=== PATIENT | male | born 1940 | race Caucasian/White ===

== ENCOUNTER 2021-06-01 02:14 | Inpatient (IN) | payer OTHER ==
[2021-06-01 03:25] LABS: MCH 28.8 pg (25.7-33.7); MCHC 32.2 g/dl (32.0-35.9); MEAN CELL VOLUME 89.4 fl (80-96); MEAN PLT VOLUME 8.6 fl (7.5-11.1); PLATELET COUNT 303 10^3/uL (134-434); RBC 3.13 M/mm3 (4.00-5.60); RDW 22.6 % (11.9-15.9)
[2021-06-01 03:43] LABS: CHLORIDE 93 mmol/L (98-107); SODIUM 137 mmol/L (136-145)
[2021-06-01 03:45] LABS: CALCIUM 8.5 mg/dL (8.5-10.1)
[2021-06-01 03:46] LABS: ALBUMIN 2.1 g/dl (3.4-5.0); ANION GAP 14 MMOL/L (8-16); CO2 30 mmol/L (21-32); GLUCOSE,RANDOM 186 mg/dL (74-106)
[2021-06-01 03:49] LABS: CREATININE 2.6 mg/dL (0.55-1.3); SGOT/AST 48 U/L (15-37); SGPT/ALT 55 U/L (13-61)
[2021-06-01 03:50] LABS: BILIRUBIN,TOTAL 1.3 mg/dL (0.2-1); TOT PROT 7.5 g/dl (6.4-8.2)
[2021-06-01 03:52] LABS: ALK PHOS 990 U/L (45-117)
[2021-06-01 04:09] LABS: ANISOCYTOSIS 2+; MACROCYTOSIS 0; PLATELET ESTIMATE NORMAL
[2021-06-01 04:21] LABS: BLOOD UREA NITROGEN 174.7 mg/dL (7-18)
[2021-06-01] MEDS ORDERED: VANCOMYCIN 1 GM in D5W (PRE-DOCKED) 1,000 MG/250 ML IVPB ONE (05:17)
[2021-06-01] MEDS ORDERED: PIPERACILLIN/TAZOB 3.375 GM 3.375 GM in DEXTROSE 5%-WATER - 50 ML IVPB ONE (05:18)
[2021-06-01] MEDS ORDERED: PIPERACILLIN/TAZOB 3.375 GM 3.375 GM/50 ML BAG IVPB ONE (05:38)
[2021-06-01] MEDS ORDERED: VANCOMYCIN 1 GRAM (PRE-DOCKED) 1,000 MG/250 ML BAG IVPB ONE (06:04)
[2021-06-01 07:18] LABS: LACTIC ACID 2.3 mmol/L (0.4-2.0)
[2021-06-01] MEDS ORDERED: SODIUM CHLORIDE 1,000 ML IV SCH (08:30)
[2021-06-01 09:10] LABS: EPI CELLS 5 /uL (0-25.1); HYALINE CASTS 3 /uL (0-3.1); URINE APPEARANCE TURBID; URINE BACTERIA 108 /uL (0-1359); URINE BILIRUBIN NEGATIVE (NEGATIVE); URINE COLOR DK YELLOW; URINE GLUCOSE (UA) NEGATIVE (NEGATIVE); URINE KETONE NEGATIVE (NEGATIVE); URINE LEUK ESTERASE 3+ (NEGATIVE); URINE NITRITE NEGATIVE (NEGATIVE); URINE PROTEIN TRACE (NEGATIVE); URINE UROBILINOGEN 0.2 mg/dL (0.2-1.0); URINE WBC 4363 /uL (0-25.8)
[2021-06-01 09:17] LABS: RETICULOCYTES 3.89 % (0.5-1.5)
[2021-06-01 09:20] LABS: IRON SERUM 39 ug/dL (50-175)
[2021-06-01 09:23] LABS: TOTAL IRON BINDING CAPACITY 195 ug/dL (250-450)
[2021-06-01 09:35] LABS: LDH 274 U/L (87-246)
[2021-06-01 09:50] LABS: URINE RBC 179.2 /uL (0-23.9); YEAST MODERATE (NEGATIVE)
[2021-06-01] MEDS ORDERED: DIGOXIN 0.125 MG TABLET PO SCH (11:30)
[2021-06-01] MEDS: levETIRAcetam 500 MG TABLET (FP) PO SCH ×2 (11:39→22:07)
[2021-06-01] MEDS: PANTOPRAZOLE SODIUM 40 MG VIAL IVPB SCH ×2 (11:40→22:06)
[2021-06-01] MEDS: FOLIC ACID 1 MG TABLET (FP) PO SCH (11:40)
[2021-06-01] MEDS: INSULIN SLIDING SCALE (NOVOLOG) 1 VIAL SQ SCH ×2 (12:34→16:30)
[2021-06-01] MEDS: buPROPion HCL 75 MG TABLET PO SCH ×2 (12:34→22:53)
[2021-06-01] MEDS ORDERED: HEPARIN NA (PORCINE) 5,000 UNITS/ML 1ML VIAL SQ SCH (14:00)
[2021-06-01] MEDS: HEPARIN NA (PORCINE) 5,000 UNITS/ML 1ML VIAL SQ SCH ×2 (16:17→22:53)
[2021-06-01] MEDS: MIDODRINE HCL 5 MG TABLET PEG SCH ×2 (16:37→22:07)
[2021-06-01] MEDS ORDERED: PIPERACILLIN/TAZOBACTAM 3.375 GM VIAL IVPB ONE (17:16)
[2021-06-01] MEDS ORDERED: DEXTROSE 5%-WATER - 50 ML IVPB ONE (17:16)
[2021-06-01] MEDS: PIPERACILLIN/TAZOB 3.375 GM 3.375 GM in DEXTROSE 5%-WATER - 50 ML IVPB SCH (17:29)
[2021-06-01] MEDS: SEVELAMER CARBONATE 0.8 GM POWDER PACKET PEG SCH ×2 (18:07→18:12)
[2021-06-01 18:08] LABS: HEMATOCRIT 25.6 % (35.4-49); HEMOGLOBIN 8.4 GM/dL (11.7-16.9); MCHC 32.9 g/dl (32.0-35.9); MEAN CELL VOLUME 88.3 fl (80-96); MEAN PLT VOLUME 8.4 fl (7.5-11.1); PLATELET COUNT 268 10^3/uL (134-434); RBC 2.89 M/mm3 (4.00-5.60); RDW 22.2 % (11.9-15.9); WHITE BLOOD COUNT 14.7 K/mm3 (4.0-10.0)
[2021-06-01 18:17] LABS: INR 1.1 (0.83-1.09); PROTHROMBIN TIME (PATIENT) 13.6 SEC (9.7-13.0)
[2021-06-01 18:19] LABS: ACTIVATED PTT 22.5 SECONDS (25.2-36.5)
[2021-06-01 18:25] LABS: ARTERIAL BLD GAS O2 SATURATION 98.5 % (95-98); ARTERIAL BLOOD GAS BASE EXCESS 4.1 mmol/L (-2-2); ARTERIAL BLOOD GAS PO2 132.9 mmHg (80-100); ARTERIAL BLOOD GAS pH 7.365 (7.350-7.450)
[2021-06-01 18:27] LABS: ALLENS TEST POSITIVE
[2021-06-01 18:28] LABS: VENT MODE A/C; VENT RATE 12
[2021-06-01 18:42] LABS: ANISOCYTOSIS 3+; MACROCYTOSIS 0; PLATELET ESTIMATE NORMAL; TARGET CELLS 1+
[2021-06-01] MEDS: BUDESONIDE 0.5 MG/2 ML INH SUSP VIAL NEB SCH (20:58)
[2021-06-01] MEDS ORDERED: ZOLPIDEM TARTRATE 5 MG TABLET PEG PRN (22:00)
[2021-06-01] MEDS ORDERED: MELATONIN PEG SCH (22:00)
[2021-06-01] MEDS ORDERED: MELATONIN 5 MG TABLETS ONE (22:01)
[2021-06-01] MEDS ORDERED: MELATONIN 1 MG TABLET ONE (22:02)
[2021-06-01] MEDS: TAMSULOSIN HCL 0.4 MG CAP PO SCH (22:07)
[2021-06-01] MEDS: MELATONIN 1 MG, MELATONIN 5 MG GT SCH (22:07)
[2021-06-01] MEDS ORDERED: PT OWN MED DRAWER 7, Y5N ONE (22:43)
[2021-06-01 23:08] LABS: N-TERMINAL BNP 12410.3 pg/ml (5-450)
[2021-06-02] MEDS ORDERED: DEXTROSE 5%-WATER - 50 ML IVPB ONE ×3 (01:07→17:17)
[2021-06-02] MEDS ORDERED: PIPERACILLIN/TAZOBACTAM 3.375 GM VIAL IVPB ONE ×2 (01:07→12:55)
[2021-06-02] MEDS: PIPERACILLIN/TAZOB 3.375 GM 3.375 GM in DEXTROSE 5%-WATER - 50 ML IVPB SCH ×3 (01:31→15:12)
[2021-06-02] MEDS ORDERED: PT OWN MED DRAWER 7, Y5N ONE ×2 (04:55→15:34)
[2021-06-02] MEDS: MIDODRINE HCL 5 MG TABLET PEG SCH ×3 (05:05→23:54)
[2021-06-02] MEDS: HEPARIN NA (PORCINE) 5,000 UNITS/ML 1ML VIAL SQ SCH ×3 (05:05→23:53)
[2021-06-02] MEDS ORDERED: VANCOMYCIN/WATER 1,250 MG/250 ML BAG IVPB ONE (06:00)
[2021-06-02] MEDS: INSULIN SLIDING SCALE (NOVOLOG) 1 VIAL SQ SCH ×3 (06:08→18:24)
[2021-06-02] MEDS: BUDESONIDE 0.5 MG/2 ML INH SUSP VIAL NEB SCH ×2 (07:40→20:10)
[2021-06-02 08:50] LABS: BASO % 0.4 % (0-2.0); EOS % 2.1 % (0-4.5); HEMATOCRIT 25.4 % (35.4-49); HEMOGLOBIN 8.3 GM/dL (11.7-16.9); LYMPH % 4.9 % (8-40); MCH 29.4 pg (25.7-33.7); MCHC 32.6 g/dl (32.0-35.9); MEAN CELL VOLUME 90.3 fl (80-96); MEAN PLT VOLUME 8.6 fl (7.5-11.1); MONO % 4.5 % (3.8-10.2); NEUT % 88.1 % (42.8-82.8); PLATELET COUNT 270 10^3/uL (134-434); RBC 2.81 M/mm3 (4.00-5.60); RDW 22.6 % (11.9-15.9); WHITE BLOOD COUNT 13.2 K/mm3 (4.0-10.0)
[2021-06-02 09:06] LABS: CHLORIDE 91 mmol/L (98-107); SODIUM 135 mmol/L (136-145)
[2021-06-02 09:24] LABS: ANION GAP 18 MMOL/L (8-16); CALCIUM 8.8 mg/dL (8.5-10.1); CO2 26 mmol/L (21-32); GLUCOSE,RANDOM 78 mg/dL (74-106)
[2021-06-02 09:25] LABS: MAGNESIUM 3.3 mg/dL (1.8-2.4)
[2021-06-02 09:27] LABS: CREATININE 2.7 mg/dL (0.55-1.3); SGOT/AST 38 U/L (15-37); SGPT/ALT 44 U/L (13-61)
[2021-06-02 09:28] LABS: BILIRUBIN,TOTAL 1.6 mg/dL (0.2-1); TOT PROT 7.2 g/dl (6.4-8.2)
[2021-06-02 09:29] LABS: ALK PHOS 768 U/L (45-117)
[2021-06-02] MEDS: SEVELAMER CARBONATE 0.8 GM POWDER PACKET PEG SCH ×4 (09:50→17:14)
[2021-06-02] MEDS ORDERED: PATIENT'S OWN MEDICATION (NON-FORMULARY) (Multivitamin [Multivitamin] 1 EACH Tablet) PEG SCH (10:00)
[2021-06-02 10:07] LABS: BLOOD UREA NITROGEN 183.7 mg/dL (7-18)
[2021-06-02] MEDS: PANTOPRAZOLE SODIUM 40 MG VIAL IVPB SCH (10:15)
[2021-06-02] MEDS: buPROPion HCL 75 MG TABLET PO SCH ×2 (12:52→23:55)
[2021-06-02] MEDS: MULTIVIT-MINERALS ORAL LIQUID GT SCH (12:52)
[2021-06-02] MEDS: FOLIC ACID 1 MG TABLET (FP) PO SCH (12:56)
[2021-06-02] MEDS: levETIRAcetam 500 MG TABLET (FP) PO SCH ×2 (12:56→23:53)
[2021-06-02] MEDS ORDERED: VANCOMYCIN 1 GRAM (PRE-DOCKED) 1,000 MG/250 ML BAG IVPB ONE (15:15)
[2021-06-02] MEDS: VITAMIN B COMP W-C 1 EA TABLET (NEPHRO-VITE) PO SCH (17:13)
[2021-06-02] MEDS ORDERED: PIPERACILLIN/TAZOBACTAM 2.25 GM VIAL IVPB ONE (17:17)
[2021-06-02] MEDS: PIPERACILLIN/TAZOB 2.25 GM 2.25 GM in DEXTROSE 5%-WATER - 50 ML IVPB SCH (17:20)
[2021-06-02] MEDS ORDERED: DEXTROSE 50%-WATER - 25 GM/50 ML VIAL IVPUSH ONE (18:41)
[2021-06-02] MEDS ORDERED: DEXTROSE 50%-WATER 25 GM/50 ML DISP.SYRIN ONE (18:51)
[2021-06-02] MEDS ORDERED: DEXTROSE 50%-WATER - 25 GM/50 ML VIAL IVPUSH PRN (19:04)
[2021-06-02] MEDS ORDERED: SODIUM CHLORIDE 250 ML IV STA ×2 (20:46→22:47)
[2021-06-02 21:16] LABS: ALLENS TEST POSITIVE; ARTERIAL BLD GAS O2 SATURATION 98.6 % (95-98); ARTERIAL BLOOD GAS BASE EXCESS 0 mmol/L (-2-2); ARTERIAL BLOOD GAS PO2 141.1 mmHg (80-100); ARTERIAL BLOOD GAS pH 7.328 (7.350-7.450)
[2021-06-02 21:17] LABS: VENT MODE A/C; VENT RATE 12
[2021-06-02] MEDS: TAMSULOSIN HCL 0.4 MG CAP PO SCH (23:53)
[2021-06-03] MEDS: MELATONIN 1 MG, MELATONIN 5 MG GT SCH ×2 (00:14→22:24)
[2021-06-03] MEDS ORDERED: DEXTROSE 5%-WATER - 50 ML IVPB ONE ×4 (02:07→21:47)
[2021-06-03] MEDS ORDERED: PIPERACILLIN/TAZOBACTAM 2.25 GM VIAL IVPB ONE ×4 (02:07→21:47)
[2021-06-03] MEDS: PIPERACILLIN/TAZOB 2.25 GM 2.25 GM in DEXTROSE 5%-WATER - 50 ML IVPB SCH ×3 (02:31→17:11)
[2021-06-03] MEDS ORDERED: DEXTROSE 50%-WATER 25 GM/50 ML DISP.SYRIN ONE ×3 (06:24→08:07)
[2021-06-03 06:26] LABS: INR 1.15 (0.83-1.09); PROTHROMBIN TIME (PATIENT) 14.2 SEC (9.7-13.0)
[2021-06-03 06:27] LABS: BASO % 0.5 % (0-2.0); EOS % 2.2 % (0-4.5); HEMATOCRIT 24.5 % (35.4-49); HEMOGLOBIN 8.2 GM/dL (11.7-16.9); LYMPH % 4.1 % (8-40); MCH 29.5 pg (25.7-33.7); MCHC 33.4 g/dl (32.0-35.9); MEAN CELL VOLUME 88.2 fl (80-96); MEAN PLT VOLUME 8.7 fl (7.5-11.1); MONO % 4.6 % (3.8-10.2); NEUT % 88.6 % (42.8-82.8); PLATELET COUNT 265 10^3/uL (134-434); RBC 2.78 M/mm3 (4.00-5.60); WHITE BLOOD COUNT 14.5 K/mm3 (4.0-10.0)
[2021-06-03] MEDS: MIDODRINE HCL 5 MG TABLET PEG SCH ×3 (06:43→22:24)
[2021-06-03] MEDS: INSULIN SLIDING SCALE (NOVOLOG) 1 VIAL SQ SCH ×3 (06:45→16:13)
[2021-06-03] MEDS: HEPARIN NA (PORCINE) 5,000 UNITS/ML 1ML VIAL SQ SCH (06:48)
[2021-06-03 06:58] LABS: CHLORIDE 90 mmol/L (98-107); SODIUM 134 mmol/L (136-145)
[2021-06-03 07:00] LABS: ANION GAP 16 MMOL/L (8-16); CO2 27 mmol/L (21-32)
[2021-06-03 07:01] LABS: CALCIUM 8.2 mg/dL (8.5-10.1); GLUCOSE,RANDOM 65 mg/dL (74-106)
[2021-06-03 07:03] LABS: CREATININE 2.8 mg/dL (0.55-1.3); SGPT/ALT 59 U/L (13-61)
[2021-06-03 07:04] LABS: SGOT/AST 60 U/L (15-37)
[2021-06-03 07:05] LABS: BILIRUBIN,TOTAL 1.6 mg/dL (0.2-1); TOT PROT 7.3 g/dl (6.4-8.2)
[2021-06-03 07:07] LABS: ALK PHOS 934 U/L (45-117); BLOOD UREA NITROGEN 177.3 mg/dL (7-18); IRON SERUM 27 ug/dL (50-175); TOTAL IRON BINDING CAPACITY 162 ug/dL (250-450)
[2021-06-03] MEDS: SEVELAMER CARBONATE 0.8 GM POWDER PACKET PEG SCH ×3 (08:11→17:11)
[2021-06-03] MEDS: BUDESONIDE 0.5 MG/2 ML INH SUSP VIAL NEB SCH ×2 (08:15→20:10)
[2021-06-03] MEDS ORDERED: PT OWN MED DRAWER 7, Y5N ONE ×2 (09:34→11:08)
[2021-06-03] MEDS: VITAMIN B COMP W-C 1 EA TABLET (NEPHRO-VITE) PO SCH (09:46)
[2021-06-03] MEDS: levETIRAcetam 500 MG TABLET (FP) PO SCH ×2 (09:46→22:23)
[2021-06-03] MEDS: PANTOPRAZOLE SODIUM 40 MG VIAL IVPUSH SCH (09:46)
[2021-06-03] MEDS: FOLIC ACID 1 MG TABLET (FP) PO SCH (09:46)
[2021-06-03] MEDS: MULTIVIT-MINERALS ORAL LIQUID GT SCH (11:13)
[2021-06-03] MEDS: buPROPion HCL 75 MG TABLET PO SCH ×2 (11:13→22:25)
[2021-06-03] MEDS ORDERED: FUROSEMIDE 40 MG/4 ML INJECTABLE VIAL IVPUSH ONE (11:59)
[2021-06-03] MEDS: TAMSULOSIN HCL 0.4 MG CAP PO SCH (22:23)
[2021-06-04] MEDS: PIPERACILLIN/TAZOB 2.25 GM 2.25 GM in DEXTROSE 5%-WATER - 50 ML IVPB SCH ×3 (02:00→18:00)
[2021-06-04] MEDS ORDERED: PIPERACILLIN/TAZOBACTAM 2.25 GM VIAL IVPB ONE ×3 (05:00→18:00)
[2021-06-04] MEDS ORDERED: DEXTROSE 5%-WATER - 50 ML IVPB ONE ×3 (05:00→18:00)
[2021-06-04] MEDS: MIDODRINE HCL 5 MG TABLET PEG SCH ×3 (06:41→22:07)
[2021-06-04] MEDS: INSULIN SLIDING SCALE (NOVOLOG) 1 VIAL SQ SCH ×3 (06:49→17:56)
[2021-06-04] MEDS: BUDESONIDE 0.5 MG/2 ML INH SUSP VIAL NEB SCH ×2 (08:30→20:15)
[2021-06-04] MEDS ORDERED: PT OWN MED DRAWER 7, Y5N ONE ×3 (08:58→21:29)
[2021-06-04] MEDS: buPROPion HCL 75 MG TABLET PO SCH ×2 (09:08→22:07)
[2021-06-04] MEDS: PANTOPRAZOLE SODIUM 40 MG VIAL IVPUSH SCH (09:08)
[2021-06-04] MEDS: levETIRAcetam 500 MG TABLET (FP) PO SCH ×2 (09:09→22:07)
[2021-06-04] MEDS: SEVELAMER CARBONATE 0.8 GM POWDER PACKET PEG SCH ×3 (09:09→18:00)
[2021-06-04] MEDS: VITAMIN B COMP W-C 1 EA TABLET (NEPHRO-VITE) PO SCH (09:09)
[2021-06-04] MEDS: MULTIVIT-MINERALS ORAL LIQUID GT SCH (09:09)
[2021-06-04] MEDS: FOLIC ACID 1 MG TABLET (FP) PO SCH (09:09)
[2021-06-04 10:18] LABS: BASO % 0.3 % (0-2.0); EOS % 0.8 % (0-4.5); HEMATOCRIT 26.4 % (35.4-49); HEMOGLOBIN 8.5 GM/dL (11.7-16.9); LYMPH % 4.6 % (8-40); MCH 28.6 pg (25.7-33.7); MCHC 32.1 g/dl (32.0-35.9); MEAN PLT VOLUME 8.1 fl (7.5-11.1); MONO % 5.2 % (3.8-10.2); NEUT % 89.1 % (42.8-82.8); PLATELET COUNT 255 10^3/uL (134-434); RBC 2.96 M/mm3 (4.00-5.60); RDW 21.7 % (11.9-15.9); WHITE BLOOD COUNT 14.5 K/mm3 (4.0-10.0)
[2021-06-04 10:35] LABS: CHLORIDE 87 mmol/L (98-107); SODIUM 131 mmol/L (136-145)
[2021-06-04 10:40] LABS: CALCIUM 8.1 mg/dL (8.5-10.1)
[2021-06-04 10:41] LABS: ANION GAP 19 MMOL/L (8-16); CO2 24 mmol/L (21-32); GLUCOSE,RANDOM 192 mg/dL (74-106); MAGNESIUM 3.2 mg/dL (1.8-2.4)
[2021-06-04 10:42] LABS: CREATININE 3.1 mg/dL (0.55-1.3); PHOSPHOROUS 8.4 mg/dL (2.5-4.9); SGOT/AST 49 U/L (15-37); SGPT/ALT 58 U/L (13-61)
[2021-06-04 10:44] LABS: TOT PROT 7.5 g/dl (6.4-8.2)
[2021-06-04 10:45] LABS: ALK PHOS 910 U/L (45-117); BILIRUBIN,TOTAL 1.8 mg/dL (0.2-1)
[2021-06-04 11:07] LABS: BLOOD UREA NITROGEN > 150.0 mg/dL (7-18)
[2021-06-04] MEDS ORDERED: FUROSEMIDE 100 MG/10 ML INJECTABLE VIAL IVPB ONE (11:25)
[2021-06-04 12:05] LABS: ANISOCYTOSIS 2+; MACROCYTOSIS 1+; PLATELET ESTIMATE NORMAL
[2021-06-04] MEDS: TAMSULOSIN HCL 0.4 MG CAP PO SCH (22:07)
[2021-06-04] MEDS: MELATONIN 1 MG, MELATONIN 5 MG GT SCH (22:07)
[2021-06-05] MEDS ORDERED: PIPERACILLIN/TAZOBACTAM 2.25 GM VIAL IVPB ONE ×4 (01:23→23:38)
[2021-06-05] MEDS ORDERED: DEXTROSE 5%-WATER - 50 ML IVPB ONE ×4 (01:23→23:38)
[2021-06-05] MEDS: PIPERACILLIN/TAZOB 2.25 GM 2.25 GM in DEXTROSE 5%-WATER - 50 ML IVPB SCH ×3 (01:55→17:38)
[2021-06-05] MEDS: MIDODRINE HCL 5 MG TABLET PEG SCH ×3 (06:16→22:39)
[2021-06-05 06:32] LABS: VENOUS BASE EXCESS -4.7 mmol/L (-2-2); VENOUS O2 SATURATION 96.1 % (70-80); VENOUS PCO2 55.5 mmHg (38-52)
[2021-06-05 06:33] LABS: VENOUS PH 7.234 (7.310-7.410)
[2021-06-05 06:37] LABS: BASO % 0.5 % (0-2.0); EOS % 0.9 % (0-4.5); HEMOGLOBIN 8.6 GM/dL (11.7-16.9); LYMPH % 3.7 % (8-40); MCH 28.7 pg (25.7-33.7); MCHC 31.8 g/dl (32.0-35.9); MEAN CELL VOLUME 90.1 fl (80-96); MEAN PLT VOLUME 8.6 fl (7.5-11.1); MONO % 4.5 % (3.8-10.2); NEUT % 90.4 % (42.8-82.8); PLATELET COUNT 293 10^3/uL (134-434); RDW 21.7 % (11.9-15.9); WHITE BLOOD COUNT 17.6 K/mm3 (4.0-10.0)
[2021-06-05 06:50] LABS: CHLORIDE 87 mmol/L (98-107); SODIUM 130 mmol/L (136-145)
[2021-06-05 06:52] LABS: CALCIUM 8.1 mg/dL (8.5-10.1)
[2021-06-05 06:53] LABS: ALBUMIN 2.1 g/dl (3.4-5.0); ANION GAP 18 MMOL/L (8-16); CO2 25 mmol/L (21-32); GLUCOSE,RANDOM 275 mg/dL (74-106); MAGNESIUM 3.5 mg/dL (1.8-2.4)
[2021-06-05 06:56] LABS: CREATININE 3.1 mg/dL (0.55-1.3); PHOSPHOROUS 7.9 mg/dL (2.5-4.9); SGOT/AST 41 U/L (15-37); SGPT/ALT 53 U/L (13-61)
[2021-06-05 06:58] LABS: BILIRUBIN,TOTAL 1.6 mg/dL (0.2-1); TOT PROT 7.9 g/dl (6.4-8.2)
[2021-06-05] MEDS: INSULIN SLIDING SCALE (NOVOLOG) 1 VIAL SQ SCH ×3 (07:10→17:38)
[2021-06-05 07:19] LABS: ALK PHOS 944 U/L (45-117); BLOOD UREA NITROGEN 179.6 mg/dL (7-18)
[2021-06-05] MEDS: BUDESONIDE 0.5 MG/2 ML INH SUSP VIAL NEB SCH (08:23)
[2021-06-05] MEDS ORDERED: PT OWN MED DRAWER 7, Y5N ONE ×2 (08:47→12:40)
[2021-06-05] MEDS: SEVELAMER CARBONATE 0.8 GM POWDER PACKET PEG SCH ×3 (09:00→17:38)
[2021-06-05] MEDS: MULTIVIT-MINERALS ORAL LIQUID GT SCH (09:00)
[2021-06-05] MEDS: PANTOPRAZOLE SODIUM 40 MG VIAL IVPUSH SCH (09:01)
[2021-06-05] MEDS: levETIRAcetam 500 MG TABLET (FP) PO SCH ×2 (09:01→22:39)
[2021-06-05] MEDS: FOLIC ACID 1 MG TABLET (FP) PO SCH (09:01)
[2021-06-05] MEDS: VITAMIN B COMP W-C 1 EA TABLET (NEPHRO-VITE) PO SCH (09:01)
[2021-06-05] MEDS: buPROPion HCL 75 MG TABLET PO SCH (09:01)
[2021-06-05] MEDS ORDERED: FUROSEMIDE 100 MG/10 ML INJECTABLE VIAL IVPB ONE (14:45)
[2021-06-05 21:06] LABS: GLIADIN ANTIBODY IGA 4 units (0-19); GLIADIN ANTIBODY IGG 2 units (0-19); TRANSGLUTAMINASE IGG < 2 U/mL (0-5)
[2021-06-05] MEDS: TAMSULOSIN HCL 0.4 MG CAP PO SCH (22:39)
[2021-06-06] MEDS: PIPERACILLIN/TAZOB 2.25 GM 2.25 GM in DEXTROSE 5%-WATER - 50 ML IVPB SCH ×3 (01:45→17:19)
[2021-06-06 06:08] LABS: HEMATOCRIT 25.5 % (35.4-49); HEMOGLOBIN 8.3 GM/dL (11.7-16.9); MCH 29.1 pg (25.7-33.7); MCHC 32.4 g/dl (32.0-35.9); MEAN CELL VOLUME 89.8 fl (80-96); PLATELET COUNT 274 10^3/uL (134-434); RBC 2.84 M/mm3 (4.00-5.60); RDW 21.4 % (11.9-15.9); WHITE BLOOD COUNT 16.8 K/mm3 (4.0-10.0)
[2021-06-06] MEDS: INSULIN SLIDING SCALE (NOVOLOG) 1 VIAL SQ SCH ×3 (06:23→17:19)
[2021-06-06] MEDS: MIDODRINE HCL 5 MG TABLET PEG SCH ×3 (06:23→21:35)
[2021-06-06 06:29] LABS: CHLORIDE 85 mmol/L (98-107); SODIUM 128 mmol/L (136-145)
[2021-06-06 06:42] LABS: ALBUMIN 1.9 g/dl (3.4-5.0); ANION GAP 20 MMOL/L (8-16); CALCIUM 7.8 mg/dL (8.5-10.1); CO2 23 mmol/L (21-32); GLUCOSE,RANDOM 263 mg/dL (74-106)
[2021-06-06 06:43] LABS: MAGNESIUM 3.2 mg/dL (1.8-2.4)
[2021-06-06 06:44] LABS: SGPT/ALT 46 U/L (13-61)
[2021-06-06 06:45] LABS: CREATININE 3.4 mg/dL (0.55-1.3); PHOSPHOROUS 7.7 mg/dL (2.5-4.9); SGOT/AST 36 U/L (15-37)
[2021-06-06 06:46] LABS: BILIRUBIN,TOTAL 1.5 mg/dL (0.2-1); TOT PROT 7.5 g/dl (6.4-8.2)
[2021-06-06 06:48] LABS: ALK PHOS 904 U/L (45-117)
[2021-06-06 07:03] LABS: BLOOD UREA NITROGEN 208.5 mg/dL (7-18)
[2021-06-06 08:46] LABS: ANISOCYTOSIS 0; HELMET CELLS 0; HOWELL-JOLLY BODIES 0; MACROCYTOSIS 0; OVALOCYTE 0; PLATELET ESTIMATE NORMAL; ROULEAU 0; SICKELED CELLS 0; TARGET CELLS 0; TEAR DROP CELLS 0; TOXIC GRANULATION 0
[2021-06-06] MEDS ORDERED: PT OWN MED DRAWER 7, Y5N ONE (09:17)
[2021-06-06] MEDS ORDERED: DEXTROSE 5%-WATER - 50 ML IVPB ONE ×2 (09:19→16:45)
[2021-06-06] MEDS ORDERED: PIPERACILLIN/TAZOBACTAM 2.25 GM VIAL IVPB ONE ×2 (09:19→16:45)
[2021-06-06] MEDS: levETIRAcetam 500 MG TABLET (FP) PO SCH ×2 (09:40→21:34)
[2021-06-06] MEDS: SEVELAMER CARBONATE 0.8 GM POWDER PACKET PEG SCH ×3 (09:40→17:19)
[2021-06-06] MEDS: FOLIC ACID 1 MG TABLET (FP) PO SCH (09:40)
[2021-06-06] MEDS: MULTIVIT-MINERALS ORAL LIQUID GT SCH (09:40)
[2021-06-06] MEDS: VITAMIN B COMP W-C 1 EA TABLET (NEPHRO-VITE) PO SCH (09:41)
[2021-06-06] MEDS: PANTOPRAZOLE SODIUM 40 MG VIAL IVPUSH SCH (09:41)
[2021-06-06] MEDS ORDERED: MIDAZOLAM IN 0.9 % SOD.CHLORID 100 MG/100 ML PLAST..BAG IVPB SCH (10:00)
[2021-06-06] MEDS ORDERED: MIDAZOLAM IN 0.9 % SOD.CHLORID 1 MG/1 ML PLAST..BAG ONE (10:05)
[2021-06-06] MEDS ORDERED: SODIUM CHLORIDE 250 ML IV PRN (15:02)
[2021-06-06] MEDS: ALBUMIN HUMAN 25% 12.5 GM/50 ML VIAL IVPB SCH ×6 (15:40→21:27)
[2021-06-06] MEDS: TAMSULOSIN HCL 0.4 MG CAP PO SCH (21:34)
[2021-06-07] MEDS ORDERED: DEXTROSE 5%-WATER - 50 ML IVPB ONE ×3 (00:46→17:36)
[2021-06-07] MEDS ORDERED: PIPERACILLIN/TAZOBACTAM 2.25 GM VIAL IVPB ONE ×3 (00:46→17:36)
[2021-06-07] MEDS: PIPERACILLIN/TAZOB 2.25 GM 2.25 GM in DEXTROSE 5%-WATER - 50 ML IVPB SCH ×3 (01:43→17:49)
[2021-06-07] MEDS: MIDODRINE HCL 5 MG TABLET PEG SCH ×3 (06:10→22:48)
[2021-06-07 06:33] LABS: HEMATOCRIT 24.9 % (35.4-49); MCH 28.8 pg (25.7-33.7); MCHC 32.4 g/dl (32.0-35.9); MEAN CELL VOLUME 89.1 fl (80-96); MEAN PLT VOLUME 8.4 fl (7.5-11.1); PLATELET COUNT 265 10^3/uL (134-434); RBC 2.79 M/mm3 (4.00-5.60); RDW 21.4 % (11.9-15.9)
[2021-06-07] MEDS: INSULIN SLIDING SCALE (NOVOLOG) 1 VIAL SQ SCH ×3 (06:35→17:54)
[2021-06-07 06:52] LABS: CHLORIDE 90 mmol/L (98-107); SODIUM 132 mmol/L (136-145)
[2021-06-07 06:55] LABS: ANION GAP 16 MMOL/L (8-16); CO2 27 mmol/L (21-32); GLUCOSE,RANDOM 206 mg/dL (74-106)
[2021-06-07 06:58] LABS: CREATININE 2.7 mg/dL (0.55-1.3); PHOSPHOROUS 5.5 mg/dL (2.5-4.9); SGOT/AST 36 U/L (15-37); SGPT/ALT 44 U/L (13-61)
[2021-06-07 06:59] LABS: BILIRUBIN,TOTAL 1.6 mg/dL (0.2-1); TOT PROT 7.3 g/dl (6.4-8.2)
[2021-06-07 07:08] LABS: ALK PHOS 854 U/L (45-117); BLOOD UREA NITROGEN 137.7 mg/dL (7-18)
[2021-06-07] MEDS ORDERED: PT OWN MED DRAWER 7, Y5N ONE (09:44)
[2021-06-07 10:23] LABS: ANISOCYTOSIS 0; HELMET CELLS 0; HOWELL-JOLLY BODIES 0; MACROCYTOSIS 0; OVALOCYTE 0; PLATELET ESTIMATE NORMAL; ROULEAU 0; SICKELED CELLS 0; TARGET CELLS 0; TEAR DROP CELLS 0; TOXIC GRANULATION 0
[2021-06-07] MEDS: PANTOPRAZOLE SODIUM 40 MG VIAL IVPUSH SCH (10:36)
[2021-06-07] MEDS: VITAMIN B COMP W-C 1 EA TABLET (NEPHRO-VITE) PO SCH (10:36)
[2021-06-07] MEDS: MULTIVIT-MINERALS ORAL LIQUID GT SCH (10:36)
[2021-06-07] MEDS: SEVELAMER CARBONATE 0.8 GM POWDER PACKET PEG SCH ×3 (10:36→17:49)
[2021-06-07] MEDS: FOLIC ACID 1 MG TABLET (FP) PO SCH (10:37)
[2021-06-07] MEDS: levETIRAcetam 500 MG TABLET (FP) PO SCH ×2 (10:37→22:48)
[2021-06-07] MEDS ORDERED: morphine SULFATE 4 MG/ML VIAL IVPUSH PRN (11:09)
[2021-06-07] MEDS ORDERED: MIDAZOLAM HCL 2 MG/2 ML SINGLE DOSE VIAL IVPUSH PRN (11:50)
[2021-06-07] MEDS ORDERED: SODIUM CHLORIDE 250 ML IV PRN (13:12)
[2021-06-07] MEDS: HEPARIN NA (PORCINE) 5,000 UNITS/ML 1ML VIAL SQ SCH ×2 (14:14→22:48)
[2021-06-07] MEDS: ALBUMIN HUMAN 25% 12.5 GM/50 ML VIAL IVPB SCH ×4 (17:32→17:35)
[2021-06-07] MEDS: TAMSULOSIN HCL 0.4 MG CAP PO SCH (22:48)
[2021-06-08] MEDS ORDERED: DEXTROSE 5%-WATER - 50 ML IVPB ONE ×3 (01:45→17:01)
[2021-06-08] MEDS ORDERED: PIPERACILLIN/TAZOBACTAM 2.25 GM VIAL IVPB ONE ×3 (01:45→17:01)
[2021-06-08] MEDS: PIPERACILLIN/TAZOB 2.25 GM 2.25 GM in DEXTROSE 5%-WATER - 50 ML IVPB SCH ×3 (02:25→17:06)
[2021-06-08] MEDS: MIDODRINE HCL 5 MG TABLET PEG SCH ×3 (05:52→21:52)
[2021-06-08] MEDS: HEPARIN NA (PORCINE) 5,000 UNITS/ML 1ML VIAL SQ SCH ×3 (05:52→21:52)
[2021-06-08 06:32] LABS: BASO % 0.3 % (0-2.0); EOS % 1.3 % (0-4.5); HEMATOCRIT 24.8 % (35.4-49); LYMPH % 3.8 % (8-40); MCH 28.7 pg (25.7-33.7); MCHC 32.3 g/dl (32.0-35.9); MEAN CELL VOLUME 88.8 fl (80-96); MONO % 5.7 % (3.8-10.2); NEUT % 88.9 % (42.8-82.8); PLATELET COUNT 273 10^3/uL (134-434); RDW 21.5 % (11.9-15.9)
[2021-06-08] MEDS: INSULIN SLIDING SCALE (NOVOLOG) 1 VIAL SQ SCH ×3 (06:39→16:50)
[2021-06-08 06:52] LABS: CHLORIDE 95 mmol/L (98-107); SODIUM 136 mmol/L (136-145)
[2021-06-08 06:57] LABS: ALBUMIN 2.1 g/dl (3.4-5.0); CALCIUM 7.9 mg/dL (8.5-10.1)
[2021-06-08 06:58] LABS: ANION GAP 15 MMOL/L (8-16); CO2 27 mmol/L (21-32); GLUCOSE,RANDOM 247 mg/dL (74-106)
[2021-06-08 07:00] LABS: CREATININE 2.1 mg/dL (0.55-1.3); SGOT/AST 45 U/L (15-37); SGPT/ALT 45 U/L (13-61)
[2021-06-08 07:02] LABS: BILIRUBIN,TOTAL 2.3 mg/dL (0.2-1); TOT PROT 7.3 g/dl (6.4-8.2)
[2021-06-08 07:05] LABS: ALK PHOS > 1000 U/L (45-117); BLOOD UREA NITROGEN 94.8 mg/dL (7-18)
[2021-06-08] MEDS ORDERED: PT OWN MED DRAWER 7, Y5N ONE (08:59)
[2021-06-08] MEDS: SEVELAMER CARBONATE 0.8 GM POWDER PACKET PEG SCH ×3 (09:00→17:06)
[2021-06-08] MEDS: PANTOPRAZOLE SODIUM 40 MG VIAL IVPUSH SCH (09:36)
[2021-06-08] MEDS: VITAMIN B COMP W-C 1 EA TABLET (NEPHRO-VITE) PO SCH (09:36)
[2021-06-08] MEDS: MULTIVIT-MINERALS ORAL LIQUID GT SCH (09:36)
[2021-06-08] MEDS: levETIRAcetam 500 MG TABLET (FP) PO SCH ×2 (09:37→21:52)
[2021-06-08] MEDS: FOLIC ACID 1 MG TABLET (FP) PO SCH (09:38)
[2021-06-08 11:37] LABS: ANISOCYTOSIS 2+; MACROCYTOSIS 0; PLATELET ESTIMATE NORMAL; TARGET CELLS 2+
[2021-06-08] MEDS ORDERED: SODIUM CHLORIDE 250 ML IV PRN (14:18)
[2021-06-08] MEDS: TAMSULOSIN HCL 0.4 MG CAP PO SCH (21:52)
[2021-06-09] MEDS ORDERED: PIPERACILLIN/TAZOBACTAM 2.25 GM VIAL IVPB ONE ×4 (02:37→23:36)
[2021-06-09] MEDS ORDERED: DEXTROSE 5%-WATER - 50 ML IVPB ONE ×4 (02:37→23:36)
[2021-06-09] MEDS: PIPERACILLIN/TAZOB 2.25 GM 2.25 GM in DEXTROSE 5%-WATER - 50 ML IVPB SCH ×3 (02:40→17:59)
[2021-06-09] MEDS: HEPARIN NA (PORCINE) 5,000 UNITS/ML 1ML VIAL SQ SCH ×3 (06:04→21:33)
[2021-06-09] MEDS: MIDODRINE HCL 5 MG TABLET PEG SCH ×3 (06:05→21:34)
[2021-06-09] MEDS: INSULIN SLIDING SCALE (NOVOLOG) 1 VIAL SQ SCH ×3 (06:05→15:35)
[2021-06-09 07:02] LABS: HEMATOCRIT 23.9 % (35.4-49); HEMOGLOBIN 7.8 GM/dL (11.7-16.9); MCH 29.1 pg (25.7-33.7); MCHC 32.8 g/dl (32.0-35.9); MEAN CELL VOLUME 88.6 fl (80-96); MEAN PLT VOLUME 8.9 fl (7.5-11.1); PLATELET COUNT 271 10^3/uL (134-434); RBC 2.69 M/mm3 (4.00-5.60); RDW 21.8 % (11.9-15.9); WHITE BLOOD COUNT 17.4 K/mm3 (4.0-10.0)
[2021-06-09 07:20] LABS: ALBUMIN 1.9 g/dl (3.4-5.0); BLOOD UREA NITROGEN 102.8 mg/dL (7-18); CALCIUM 8.6 mg/dL (8.5-10.1); MAGNESIUM 2.9 mg/dL (1.8-2.4)
[2021-06-09 07:23] LABS: CREATININE 2.3 mg/dL (0.55-1.3)
[2021-06-09 07:24] LABS: PHOSPHOROUS 4.4 mg/dL (2.5-4.9)
[2021-06-09 07:25] LABS: TOT PROT 6.9 g/dl (6.4-8.2)
[2021-06-09 07:26] LABS: BILIRUBIN,TOTAL 2.2 mg/dL (0.2-1)
[2021-06-09] MEDS: ALBUMIN HUMAN 25% 12.5 GM/50 ML VIAL IVPB SCH ×4 (07:40→10:40)
[2021-06-09] MEDS: SEVELAMER CARBONATE 0.8 GM POWDER PACKET PEG SCH ×3 (07:58→17:59)
[2021-06-09 09:08] LABS: ANISOCYTOSIS 2+; MACROCYTOSIS 1+; PLATELET ESTIMATE NORMAL
[2021-06-09] MEDS ORDERED: EPOETIN ALFA-EPBX 10,000 UNIT/ML VIAL IVPUSH ONE (09:15)
[2021-06-09] MEDS ORDERED: PT OWN MED DRAWER 7, Y5N ONE (10:08)
[2021-06-09] MEDS: MULTIVIT-MINERALS ORAL LIQUID GT SCH (11:00)
[2021-06-09] MEDS: FOLIC ACID 1 MG TABLET (FP) PO SCH (11:00)
[2021-06-09] MEDS: levETIRAcetam 500 MG TABLET (FP) PO SCH ×2 (11:00→21:33)
[2021-06-09] MEDS: VITAMIN B COMP W-C 1 EA TABLET (NEPHRO-VITE) PO SCH (11:00)
[2021-06-09] MEDS: PANTOPRAZOLE SODIUM 40 MG VIAL IVPUSH SCH (11:00)
[2021-06-09] MEDS: TAMSULOSIN HCL 0.4 MG CAP PO SCH (21:33)
[2021-06-10] MEDS: PIPERACILLIN/TAZOB 2.25 GM 2.25 GM in DEXTROSE 5%-WATER - 50 ML IVPB SCH ×3 (01:17→17:30)
[2021-06-10] MEDS ORDERED: PT OWN MED DRAWER 7, Y5N ONE ×2 (05:58→09:18)
[2021-06-10] MEDS: HEPARIN NA (PORCINE) 5,000 UNITS/ML 1ML VIAL SQ SCH ×3 (06:04→21:17)
[2021-06-10] MEDS: MIDODRINE HCL 5 MG TABLET PEG SCH ×3 (06:04→21:18)
[2021-06-10] MEDS: INSULIN SLIDING SCALE (NOVOLOG) 1 VIAL SQ SCH ×3 (06:08→17:15)
[2021-06-10 07:52] LABS: ALBUMIN 2.2 g/dl (3.4-5.0); CALCIUM 8.4 mg/dL (8.5-10.1); MAGNESIUM 2.2 mg/dL (1.8-2.4)
[2021-06-10 07:55] LABS: CREATININE 1.6 mg/dL (0.55-1.3)
[2021-06-10 07:56] LABS: PHOSPHOROUS 3.1 mg/dL (2.5-4.9)
[2021-06-10 07:57] LABS: BILIRUBIN,TOTAL 1.9 mg/dL (0.2-1); TOT PROT 7.1 g/dl (6.4-8.2)
[2021-06-10 08:04] LABS: HEMATOCRIT 26.4 % (35.4-49); HEMOGLOBIN 8.8 GM/dL (11.7-16.9); MCH 30.2 pg (25.7-33.7); MCHC 33.4 g/dl (32.0-35.9); MEAN CELL VOLUME 90.3 fl (80-96); MEAN PLT VOLUME 8.7 fl (7.5-11.1); PLATELET COUNT 386 10^3/uL (134-434); RBC 2.92 M/mm3 (4.00-5.60); RDW 21.7 % (11.9-15.9); WHITE BLOOD COUNT 20.2 K/mm3 (4.0-10.0)
[2021-06-10] MEDS ORDERED: PIPERACILLIN/TAZOBACTAM 2.25 GM VIAL IVPB ONE ×2 (09:18→17:24)
[2021-06-10] MEDS ORDERED: DEXTROSE 5%-WATER - 50 ML IVPB ONE ×2 (09:19→17:24)
[2021-06-10] MEDS: SEVELAMER CARBONATE 0.8 GM POWDER PACKET PEG SCH ×3 (09:21→17:30)
[2021-06-10] MEDS: PANTOPRAZOLE SODIUM 40 MG VIAL IVPUSH SCH (09:21)
[2021-06-10] MEDS: AMINO ACIDS/PROTEIN HYDROLYS 30 ML LIQUID.PKT PO SCH (09:21)
[2021-06-10] MEDS: VITAMIN B COMP W-C 1 EA TABLET (NEPHRO-VITE) PO SCH (09:21)
[2021-06-10] MEDS: FOLIC ACID 1 MG TABLET (FP) PO SCH (09:21)
[2021-06-10] MEDS: levETIRAcetam 500 MG TABLET (FP) PO SCH ×2 (09:21→21:17)
[2021-06-10] MEDS: MULTIVIT-MINERALS ORAL LIQUID GT SCH (09:22)
[2021-06-10] MEDS: BANATROL PLUS POWDER PACKET PEG SCH (21:17)
[2021-06-10] MEDS: TAMSULOSIN HCL 0.4 MG CAP PO SCH (21:18)
[2021-06-11] MEDS ORDERED: DEXTROSE 5%-WATER - 50 ML IVPB ONE ×3 (00:39→17:17)
[2021-06-11] MEDS ORDERED: PIPERACILLIN/TAZOBACTAM 2.25 GM VIAL IVPB ONE ×3 (00:39→17:17)
[2021-06-11] MEDS: PIPERACILLIN/TAZOB 2.25 GM 2.25 GM in DEXTROSE 5%-WATER - 50 ML IVPB SCH ×3 (01:10→17:20)
[2021-06-11] MEDS: MIDODRINE HCL 5 MG TABLET PEG SCH ×3 (05:44→22:59)
[2021-06-11] MEDS: HEPARIN NA (PORCINE) 5,000 UNITS/ML 1ML VIAL SQ SCH ×3 (05:44→22:59)
[2021-06-11] MEDS: INSULIN SLIDING SCALE (NOVOLOG) 1 VIAL SQ SCH ×3 (06:10→17:15)
[2021-06-11 07:12] LABS: HEMATOCRIT 25.6 % (35.4-49); HEMOGLOBIN 8.3 GM/dL (11.7-16.9); MCH 29.1 pg (25.7-33.7); MCHC 32.6 g/dl (32.0-35.9); MEAN CELL VOLUME 89.4 fl (80-96); MEAN PLT VOLUME 8.7 fl (7.5-11.1); PLATELET COUNT 296 10^3/uL (134-434); RBC 2.87 M/mm3 (4.00-5.60); RDW 22.2 % (11.9-15.9); WHITE BLOOD COUNT 19.1 K/mm3 (4.0-10.0)
[2021-06-11 07:33] LABS: ALBUMIN 1.9 g/dl (3.4-5.0); CALCIUM 8.2 mg/dL (8.5-10.1)
[2021-06-11 07:34] LABS: BLOOD UREA NITROGEN 64.5 mg/dL (7-18); MAGNESIUM 2.1 mg/dL (1.8-2.4)
[2021-06-11 07:36] LABS: CREATININE 1.8 mg/dL (0.55-1.3)
[2021-06-11 07:37] LABS: PHOSPHOROUS 2.8 mg/dL (2.5-4.9)
[2021-06-11 07:38] LABS: BILIRUBIN,TOTAL 1.8 mg/dL (0.2-1); TOT PROT 7.1 g/dl (6.4-8.2)
[2021-06-11] MEDS ORDERED: PT OWN MED DRAWER 7, Y5N ONE (10:22)
[2021-06-11] MEDS: AMINO ACIDS/PROTEIN HYDROLYS 30 ML LIQUID.PKT PO SCH (10:25)
[2021-06-11] MEDS: SEVELAMER CARBONATE 0.8 GM POWDER PACKET PEG SCH ×3 (10:25→17:20)
[2021-06-11] MEDS: BANATROL PLUS POWDER PACKET PEG SCH ×2 (10:25→23:00)
[2021-06-11] MEDS: PANTOPRAZOLE SODIUM 40 MG VIAL IVPUSH SCH (10:26)
[2021-06-11] MEDS: FOLIC ACID 1 MG TABLET (FP) PO SCH (10:27)
[2021-06-11] MEDS: MULTIVIT-MINERALS ORAL LIQUID GT SCH (10:27)
[2021-06-11] MEDS: levETIRAcetam 500 MG TABLET (FP) PO SCH ×2 (10:27→22:59)
[2021-06-11] MEDS: VITAMIN B COMP W-C 1 EA TABLET (NEPHRO-VITE) PO SCH (10:28)
[2021-06-11] MEDS ORDERED: SODIUM CHLORIDE 250 ML IV PRN (17:55)
[2021-06-11] MEDS: TAMSULOSIN HCL 0.4 MG CAP PO SCH (23:00)
[2021-06-12] MEDS ORDERED: DEXTROSE 5%-WATER - 50 ML IVPB ONE ×2 (01:14→08:06)
[2021-06-12] MEDS ORDERED: PIPERACILLIN/TAZOBACTAM 2.25 GM VIAL IVPB ONE ×2 (01:14→08:05)
[2021-06-12] MEDS: PIPERACILLIN/TAZOB 2.25 GM 2.25 GM in DEXTROSE 5%-WATER - 50 ML IVPB SCH ×2 (01:15→09:14)
[2021-06-12] MEDS: MIDODRINE HCL 5 MG TABLET PEG SCH ×3 (07:23→22:55)
[2021-06-12] MEDS: HEPARIN NA (PORCINE) 5,000 UNITS/ML 1ML VIAL SQ SCH ×3 (07:23→22:55)
[2021-06-12] MEDS: INSULIN SLIDING SCALE (NOVOLOG) 1 VIAL SQ SCH ×3 (07:27→17:47)
[2021-06-12] MEDS: SEVELAMER CARBONATE 0.8 GM POWDER PACKET PEG SCH ×3 (08:22→17:47)
[2021-06-12] MEDS: AMINO ACIDS/PROTEIN HYDROLYS 30 ML LIQUID.PKT PO SCH (08:22)
[2021-06-12] MEDS: MULTIVIT-MINERALS ORAL LIQUID GT SCH (09:14)
[2021-06-12] MEDS: FOLIC ACID 1 MG TABLET (FP) PO SCH (09:16)
[2021-06-12] MEDS: BANATROL PLUS POWDER PACKET PEG SCH ×2 (09:16→22:55)
[2021-06-12] MEDS: PANTOPRAZOLE SODIUM 40 MG VIAL IVPUSH SCH (09:16)
[2021-06-12] MEDS: levETIRAcetam 500 MG TABLET (FP) PO SCH ×2 (09:17→22:55)
[2021-06-12] MEDS: VITAMIN B COMP W-C 1 EA TABLET (NEPHRO-VITE) PO SCH (09:17)
[2021-06-12 10:31] LABS: HEMATOCRIT 26.3 % (35.4-49); HEMOGLOBIN 8.4 GM/dL (11.7-16.9); MCH 28.5 pg (25.7-33.7); MCHC 31.7 g/dl (32.0-35.9); MEAN CELL VOLUME 89.7 fl (80-96); MEAN PLT VOLUME 8.3 fl (7.5-11.1); PLATELET COUNT 272 10^3/uL (134-434); RBC 2.93 M/mm3 (4.00-5.60); RDW 21.9 % (11.9-15.9); WHITE BLOOD COUNT 19.1 K/mm3 (4.0-10.0)
[2021-06-12 10:52] LABS: CALCIUM 8.1 mg/dL (8.5-10.1)
[2021-06-12 10:53] LABS: ALBUMIN 1.8 g/dl (3.4-5.0); BLOOD UREA NITROGEN 75.1 mg/dL (7-18); MAGNESIUM 2.2 mg/dL (1.8-2.4)
[2021-06-12 10:56] LABS: CREATININE 2.1 mg/dL (0.55-1.3); PHOSPHOROUS 2.9 mg/dL (2.5-4.9)
[2021-06-12 10:57] LABS: BILIRUBIN,TOTAL 1.6 mg/dL (0.2-1); TOT PROT 7.2 g/dl (6.4-8.2)
[2021-06-12] MEDS ORDERED: MAGNESIUM SULF 50% (8.12 MEQ/2 ML-1 GM VIAL) IVPB ONE (11:30)
[2021-06-12 11:42] LABS: ANISOCYTOSIS 2+; MACROCYTOSIS 1+; PLATELET ESTIMATE NORMAL
[2021-06-12] MEDS ORDERED: PT OWN MED DRAWER 7, Y5N ONE ×4 (12:18→22:32)
[2021-06-12] MEDS: COLLAGENASE CLOSTRIDIUM HIST. 30 GRAMS TUBE TP SCH (12:27)
[2021-06-12] MEDS: DIGOXIN 0.125 MG TABLET PO SCH (17:57)
[2021-06-12] MEDS: TAMSULOSIN HCL 0.4 MG CAP PO SCH (22:55)
[2021-06-12] MEDS ORDERED: DEXTROSE 50%-WATER - 25 GM/50 ML VIAL IVPUSH PRN (23:55)
[2021-06-13] MEDS ORDERED: MIDODRINE HCL 5 MG TABLET PEG SCH (06:00)
[2021-06-13] MEDS: HEPARIN NA (PORCINE) 5,000 UNITS/ML 1ML VIAL SQ SCH ×2 (06:33→13:47)
[2021-06-13] MEDS: INSULIN SLIDING SCALE (NOVOLOG) 1 VIAL SQ SCH ×3 (06:33→17:05)
[2021-06-13] MEDS: AMINO ACIDS/PROTEIN HYDROLYS 30 ML LIQUID.PKT PO SCH (08:33)
[2021-06-13] MEDS: SEVELAMER CARBONATE 0.8 GM POWDER PACKET PEG SCH ×3 (08:33→17:18)
[2021-06-13] MEDS ORDERED: MULTIVIT-MINERALS ORAL LIQUID GT SCH (10:00)
[2021-06-13] MEDS ORDERED: PT OWN MED DRAWER 7, Y5N ONE ×2 (10:50→13:38)
[2021-06-13] MEDS: PANTOPRAZOLE SODIUM 40 MG VIAL IVPUSH SCH (10:57)
[2021-06-13] MEDS: FOLIC ACID 1 MG TABLET (FP) PO SCH (10:58)
[2021-06-13] MEDS: BANATROL PLUS POWDER PACKET PEG SCH ×2 (10:58→21:40)
[2021-06-13] MEDS: levETIRAcetam 500 MG/5 ML ORAL SOLUTION (UNIT-DOSE CUPS) PEG SCH ×2 (10:58→21:40)
[2021-06-13] MEDS: VITAMIN B COMP W-C 1 EA TABLET (NEPHRO-VITE) PO SCH (10:58)
[2021-06-13] MEDS: COLLAGENASE CLOSTRIDIUM HIST. 30 GRAMS TUBE TP SCH (10:59)
[2021-06-13 13:01] LABS: GLUCOSE,RANDOM 170 mg/dL (74-106)
[2021-06-13 13:05] LABS: ALBUMIN 1.8 g/dl (3.4-5.0); ALK PHOS > 1000 U/L (45-117); ANION GAP 14 MMOL/L (8-16); BILIRUBIN,TOTAL 1.5 mg/dL (0.2-1); BLOOD UREA NITROGEN 53.1 mg/dL (7-18); CALCIUM 8.6 mg/dL (8.5-10.1); CHLORIDE 99 mmol/L (98-107); CO2 24 mmol/L (21-32); CREATININE 1.6 mg/dL (0.55-1.3); MAGNESIUM 2.9 mg/dL (1.8-2.4); PHOSPHOROUS 2.5 mg/dL (2.5-4.9); SGOT/AST 45 U/L (15-37); SGPT/ALT 41 U/L (13-61); SODIUM 137 mmol/L (136-145); TOT PROT 7.4 g/dl (6.4-8.2)
[2021-06-13] MEDS: MIDODRINE HCL 5 MG TABLET PEG SCH ×2 (13:47→17:14)
[2021-06-13 15:31] LABS: HEMATOCRIT 25.2 % (35.4-49); MCH 29.1 pg (25.7-33.7); MCHC 31.6 g/dl (32.0-35.9); MEAN PLT VOLUME 8.3 fl (7.5-11.1); PLATELET COUNT 221 10^3/uL (134-434); RBC 2.74 M/mm3 (4.00-5.60); RDW 22.8 % (11.9-15.9); WHITE BLOOD COUNT 20.8 K/mm3 (4.0-10.0)
[2021-06-13] MEDS ORDERED: TAMSULOSIN HCL 0.4 MG CAP PO SCH (22:00)
[2021-06-14] MEDS: INSULIN SLIDING SCALE (NOVOLOG) 1 VIAL SQ SCH ×3 (06:19→17:34)
[2021-06-14] MEDS: MIDODRINE HCL 5 MG TABLET PEG SCH ×4 (06:48→18:13)
[2021-06-14] MEDS ORDERED: SODIUM CHLORIDE 250 ML IV PRN (07:00)
[2021-06-14] MEDS: ALBUMIN HUMAN 25% 12.5 GM/50 ML VIAL IVPB SCH ×4 (07:10→08:40)
[2021-06-14 08:10] LABS: HEMATOCRIT 25.3 % (35.4-49); HEMOGLOBIN 8.2 GM/dL (11.7-16.9); MCH 28.9 pg (25.7-33.7); MCHC 32.4 g/dl (32.0-35.9); MEAN CELL VOLUME 89.2 fl (80-96); MEAN PLT VOLUME 8.3 fl (7.5-11.1); PLATELET COUNT 224 10^3/uL (134-434); RBC 2.84 M/mm3 (4.00-5.60); RDW 22.2 % (11.9-15.9)
[2021-06-14 08:22] LABS: ALBUMIN 1.7 g/dl (3.4-5.0); CALCIUM 8.2 mg/dL (8.5-10.1); MAGNESIUM 2.9 mg/dL (1.8-2.4)
[2021-06-14 08:23] LABS: BLOOD UREA NITROGEN 61.3 mg/dL (7-18)
[2021-06-14 08:25] LABS: CREATININE 1.7 mg/dL (0.55-1.3)
[2021-06-14 08:26] LABS: PHOSPHOROUS 2.6 mg/dL (2.5-4.9)
[2021-06-14 08:27] LABS: BILIRUBIN,TOTAL 1.5 mg/dL (0.2-1); TOT PROT 7.1 g/dl (6.4-8.2)
[2021-06-14] MEDS ORDERED: POTASSIUM PHOSPHATE 40 MM in SODIUM CHLORIDE 250 ML IVPB ONE (08:55)
[2021-06-14] MEDS ORDERED: POTASSIUM CHLORIDE ORAL LIQUID 20 MEQ/15 ML PO ONE (09:22)
[2021-06-14] MEDS ORDERED: POTASSIUM CHLORIDE TABS 20 MEQ TABLET.ER (FP) PO ONE (09:23)
[2021-06-14] MEDS: AMINO ACIDS/PROTEIN HYDROLYS 30 ML LIQUID.PKT PO SCH (10:19)
[2021-06-14] MEDS: SEVELAMER CARBONATE 0.8 GM POWDER PACKET PEG SCH ×3 (10:19→18:14)
[2021-06-14] MEDS: FOLIC ACID 1 MG TABLET (FP) PO SCH (10:53)
[2021-06-14] MEDS: BANATROL PLUS POWDER PACKET PEG SCH ×2 (10:53→21:19)
[2021-06-14] MEDS: DIGOXIN 0.125 MG TABLET PO SCH ×2 (11:04→12:55)
[2021-06-14] MEDS: VITAMIN B COMP W-C 1 EA TABLET (NEPHRO-VITE) PO SCH (11:06)
[2021-06-14] MEDS: levETIRAcetam 500 MG/5 ML ORAL SOLUTION (UNIT-DOSE CUPS) PEG SCH ×2 (11:06→21:19)
[2021-06-14] MEDS: COLLAGENASE CLOSTRIDIUM HIST. 30 GRAMS TUBE TP SCH (12:54)
[2021-06-14] MEDS: PANTOPRAZOLE SODIUM 40 MG VIAL IVPUSH SCH (12:54)
[2021-06-14] MEDS ORDERED: LIDOCAINE HCL 1%, 10 MG/ML (20ML VIAL) ONE (13:23)
[2021-06-14] MEDS ORDERED: HEPARIN NA (PORCINE) 5,000 UNITS/ML 1ML VIAL ONE (13:23)
[2021-06-14] MEDS ORDERED: LIDOCAINE HCL 1%, 10 MG/ML (20ML VIAL) NR ONE ×2 (13:45→14:56)
[2021-06-14] MEDS ORDERED: DIGOXIN 0.125 MG TABLET PO SCH (14:16)
[2021-06-14] MEDS ORDERED: MIDAZOLAM HCL 2 MG/2 ML SINGLE DOSE VIAL ONE ×2 (14:37)
[2021-06-14] MEDS ORDERED: ceFAZolin SODIUM 1 GM VIAL IVPB ONE ×2 (14:53)
[2021-06-14] MEDS ORDERED: ceFAZolin SODIUM 1 GM VIAL ONE (14:54)
[2021-06-14] MEDS ORDERED: DEXTROSE 50%-WATER - 25 GM/50 ML VIAL IVPUSH PRN (15:36)
[2021-06-14] MEDS: HEPARIN NA (PORCINE) 5,000 UNITS/ML 1ML VIAL SQ SCH ×2 (16:15→21:19)
[2021-06-14] MEDS ORDERED: PT OWN MED DRAWER 7, Y5N ONE (21:17)
[2021-06-15] MEDS: HEPARIN NA (PORCINE) 5,000 UNITS/ML 1ML VIAL SQ SCH ×3 (06:03→21:23)
[2021-06-15] MEDS: INSULIN SLIDING SCALE (NOVOLOG) 1 VIAL SQ SCH ×3 (06:03→16:09)
[2021-06-15] MEDS ORDERED: PT OWN MED DRAWER 7, Y5N ONE ×3 (08:49→21:06)
[2021-06-15] MEDS: AMINO ACIDS/PROTEIN HYDROLYS 30 ML LIQUID.PKT PEG SCH (09:30)
[2021-06-15] MEDS: SEVELAMER CARBONATE 0.8 GM POWDER PACKET PEG SCH ×2 (09:30→11:55)
[2021-06-15] MEDS ORDERED: INSULIN SLIDING SCALE (NOVOLOG) 1 VIAL SQ ONE (11:10)
[2021-06-15] MEDS: BANATROL PLUS POWDER PACKET PEG SCH ×2 (11:21→21:23)
[2021-06-15] MEDS: PANTOPRAZOLE SODIUM 40 MG VIAL IVPUSH SCH (11:21)
[2021-06-15] MEDS: VITAMIN B COMP W-C 1 EA TABLET (NEPHRO-VITE) PO SCH (11:21)
[2021-06-15] MEDS: FOLIC ACID 1 MG TABLET (FP) PO SCH (11:22)
[2021-06-15] MEDS: MIDODRINE HCL 5 MG TABLET PEG SCH ×3 (11:23→17:30)
[2021-06-15] MEDS: levETIRAcetam 500 MG/5 ML ORAL SOLUTION (UNIT-DOSE CUPS) PEG SCH ×2 (11:23→21:23)
[2021-06-15 11:30] LABS: HEMATOCRIT 22.9 % (35.4-49); HEMOGLOBIN 7.4 GM/dL (11.7-16.9); MCH 28.9 pg (25.7-33.7); MCHC 32.2 g/dl (32.0-35.9); MEAN CELL VOLUME 89.7 fl (80-96); MEAN PLT VOLUME 8.3 fl (7.5-11.1); PLATELET COUNT 213 10^3/uL (134-434); RBC 2.56 M/mm3 (4.00-5.60); RDW 23.3 % (11.9-15.9); WHITE BLOOD COUNT 19.2 K/mm3 (4.0-10.0)
[2021-06-15 11:49] LABS: CALCIUM 8.5 mg/dL (8.5-10.1)
[2021-06-15 11:50] LABS: ALBUMIN 1.9 g/dl (3.4-5.0); BLOOD UREA NITROGEN 45.2 mg/dL (7-18); MAGNESIUM 2.2 mg/dL (1.8-2.4)
[2021-06-15 11:53] LABS: CREATININE 1.5 mg/dL (0.55-1.3); PHOSPHOROUS 1.8 mg/dL (2.5-4.9)
[2021-06-15 11:54] LABS: BILIRUBIN,TOTAL 1.4 mg/dL (0.2-1)
[2021-06-15] MEDS: COLLAGENASE CLOSTRIDIUM HIST. 30 GRAMS TUBE TP SCH (12:38)
[2021-06-15] MEDS ORDERED: POTASSIUM CHLORIDE ORAL LIQUID 20 MEQ/15 ML PO ONE ×2 (13:44→14:00)
[2021-06-15] MEDS: NYSTATIN 100,000 UNIT/GM TOPICAL CREAM 15 GM TUBE TP SCH ×2 (16:00→21:23)
[2021-06-15] MEDS ORDERED: morphine SULFATE 4 MG/ML VIAL IVPUSH ONE (16:10)
[2021-06-15] MEDS ORDERED: ACETYLCYSTEINE 20% 200MG/ML 4 ML VIAL *FOR ORAL / INH USE ONLY NEB ONE ×2 (16:46)
[2021-06-15] MEDS ORDERED: ALBUTEROL SO4 0.083% IH SOL 2.5 MG/3 ML VIAL.NEB. NEB ONE (16:47)
[2021-06-16] MEDS ORDERED: SODIUM CHLORIDE 250 ML IV STA ×2 (01:37)
[2021-06-16] MEDS ORDERED: morphine SULFATE 4 MG/ML VIAL IVPUSH ONE (01:47)
[2021-06-16 02:41] LABS: ARTERIAL BLD GAS O2 SATURATION 88.8 % (95-98); ARTERIAL BLOOD GAS BASE EXCESS 1.6 mmol/L (-2-2); ARTERIAL BLOOD GAS PO2 59.4 mmHg (80-100); ARTERIAL BLOOD GAS pH 7.339 (7.350-7.450)
[2021-06-16 02:46] LABS: ALLENS TEST POSITIVE; VENT MODE A/C
[2021-06-16 02:47] LABS: VENT RATE 20
[2021-06-16 04:40] LABS: ARTERIAL BLD GAS O2 SATURATION 88.4 % (95-98); ARTERIAL BLOOD GAS BASE EXCESS 1.2 mmol/L (-2-2); ARTERIAL BLOOD GAS PO2 57.5 mmHg (80-100); ARTERIAL BLOOD GAS pH 7.356 (7.350-7.450)
[2021-06-16 04:41] LABS: ALLENS TEST POSITIVE; PT'S TEMP 100.4
[2021-06-16 04:42] LABS: VENT MODE A/C; VENT RATE 20
[2021-06-16 05:29] LABS: HEMATOCRIT 22.7 % (35.4-49); HEMOGLOBIN 7.4 GM/dL (11.7-16.9); MCH 29.6 pg (25.7-33.7); MCHC 32.7 g/dl (32.0-35.9); MEAN CELL VOLUME 90.5 fl (80-96); PLATELET COUNT 225 10^3/uL (134-434); RBC 2.51 M/mm3 (4.00-5.60); RDW 22.8 % (11.9-15.9)
[2021-06-16 05:50] LABS: CALCIUM 8.2 mg/dL (8.5-10.1)
[2021-06-16 05:51] LABS: ALBUMIN 1.9 g/dl (3.4-5.0); BLOOD UREA NITROGEN 55.6 mg/dL (7-18); MAGNESIUM 2.6 mg/dL (1.8-2.4)
[2021-06-16 05:54] LABS: CREATININE 1.8 mg/dL (0.55-1.3)
[2021-06-16 05:55] LABS: PHOSPHOROUS 2.1 mg/dL (2.5-4.9)
[2021-06-16 05:56] LABS: BILIRUBIN,TOTAL 1.4 mg/dL (0.2-1); TOT PROT 7.2 g/dl (6.4-8.2)
[2021-06-16 06:00] LABS: INR 1.08 (0.83-1.09); PROTHROMBIN TIME (PATIENT) 12.7 SEC (9.7-13.0)
[2021-06-16] MEDS: HEPARIN NA (PORCINE) 5,000 UNITS/ML 1ML VIAL SQ SCH ×3 (06:02→21:52)
[2021-06-16 06:03] LABS: ACTIVATED PTT 29.8 SECONDS (25.2-36.5)
[2021-06-16] MEDS: INSULIN SLIDING SCALE (NOVOLOG) 1 VIAL SQ SCH ×3 (06:03→16:41)
[2021-06-16] MEDS ORDERED: SODIUM CHLORIDE 250 ML IV PRN (06:46)
[2021-06-16] MEDS: ALBUMIN HUMAN 25% 12.5 GM/50 ML VIAL IVPB SCH ×4 (07:10→08:40)
[2021-06-16] MEDS ORDERED: ALBUTEROL SO4 2.5/IPRATROPIUM 0.5 INH SOL 3 ML VIAL.NEB. NEB SCH (10:45)
[2021-06-16] MEDS ORDERED: PT OWN MED DRAWER 7, Y5N ONE ×2 (11:13→21:48)
[2021-06-16] MEDS: PANTOPRAZOLE SODIUM 40 MG VIAL IVPUSH SCH (11:18)
[2021-06-16] MEDS: levETIRAcetam 500 MG/5 ML ORAL SOLUTION (UNIT-DOSE CUPS) PEG SCH ×3 (11:18→21:52)
[2021-06-16] MEDS: AMINO ACIDS/PROTEIN HYDROLYS 30 ML LIQUID.PKT PEG SCH (11:18)
[2021-06-16] MEDS: MIDODRINE HCL 5 MG TABLET PEG SCH ×4 (11:19→18:06)
[2021-06-16] MEDS: FOLIC ACID 1 MG TABLET (FP) PO SCH (11:19)
[2021-06-16] MEDS: SEVELAMER CARBONATE 0.8 GM POWDER PACKET PEG SCH ×3 (11:19→16:46)
[2021-06-16] MEDS: VITAMIN B COMP W-C 1 EA TABLET (NEPHRO-VITE) PO SCH (11:20)
[2021-06-16] MEDS: COLLAGENASE CLOSTRIDIUM HIST. 30 GRAMS TUBE TP SCH (12:07)
[2021-06-16] MEDS: BANATROL PLUS POWDER PACKET PEG SCH ×2 (12:07→22:34)
[2021-06-16] MEDS: NYSTATIN 100,000 UNIT/GM TOPICAL CREAM 15 GM TUBE TP SCH ×2 (12:07→21:52)
[2021-06-16] MEDS: ALBUTEROL SO4 0.083% IH SOL 2.5 MG/3 ML VIAL.NEB. NEB SCH ×3 (12:10→20:40)
[2021-06-16 12:43] LABS: ARTERIAL BLD GAS O2 SATURATION 97.8 % (95-98); ARTERIAL BLOOD GAS BASE EXCESS 3.6 mmol/L (-2-2); ARTERIAL BLOOD GAS PO2 108.9 mmHg (80-100); ARTERIAL BLOOD GAS pH 7.368 (7.350-7.450)
[2021-06-16 12:44] LABS: ALLENS TEST POSITIVE; VENT MODE AC
[2021-06-16 12:45] LABS: PT'S TEMP 97.5; VENT RATE 20
[2021-06-16] MEDS: DIGOXIN 0.125 MG TABLET PO SCH (15:43)
[2021-06-17] MEDS: INSULIN SLIDING SCALE (NOVOLOG) 1 VIAL SQ SCH ×3 (06:29→18:24)
[2021-06-17] MEDS: HEPARIN NA (PORCINE) 5,000 UNITS/ML 1ML VIAL SQ SCH ×3 (06:30→21:20)
[2021-06-17] MEDS: ALBUTEROL SO4 0.083% IH SOL 2.5 MG/3 ML VIAL.NEB. NEB SCH ×4 (07:10→20:30)
[2021-06-17] MEDS ORDERED: PT OWN MED DRAWER 7, Y5N ONE ×2 (09:07→18:17)
[2021-06-17] MEDS: PANTOPRAZOLE SODIUM 40 MG VIAL IVPUSH SCH (09:13)
[2021-06-17] MEDS: levETIRAcetam 500 MG/5 ML ORAL SOLUTION (UNIT-DOSE CUPS) PEG SCH ×2 (09:15→21:20)
[2021-06-17] MEDS: MIDODRINE HCL 5 MG TABLET PEG SCH ×3 (09:15→18:22)
[2021-06-17] MEDS: AMINO ACIDS/PROTEIN HYDROLYS 30 ML LIQUID.PKT PEG SCH (09:15)
[2021-06-17] MEDS: FOLIC ACID 1 MG TABLET (FP) PO SCH (09:15)
[2021-06-17] MEDS: VITAMIN B COMP W-C 1 EA TABLET (NEPHRO-VITE) PO SCH (09:15)
[2021-06-17] MEDS: SEVELAMER CARBONATE 0.8 GM POWDER PACKET PEG SCH ×3 (09:15→18:22)
[2021-06-17] MEDS: NYSTATIN 100,000 UNIT/GM TOPICAL CREAM 15 GM TUBE TP SCH ×2 (09:16→21:20)
[2021-06-17] MEDS: BANATROL PLUS POWDER PACKET PEG SCH ×2 (09:16→21:20)
[2021-06-17 09:41] LABS: CALCIUM 8.5 mg/dL (8.5-10.1)
[2021-06-17 09:43] LABS: ALBUMIN 2.2 g/dl (3.4-5.0)
[2021-06-17 09:44] LABS: BLOOD UREA NITROGEN 41.4 mg/dL (7-18); MAGNESIUM 2.4 mg/dL (1.8-2.4)
[2021-06-17 09:47] LABS: CREATININE 1.3 mg/dL (0.55-1.3); PHOSPHOROUS 2.4 mg/dL (2.5-4.9)
[2021-06-17 09:48] LABS: BILIRUBIN,TOTAL 1.4 mg/dL (0.2-1)
[2021-06-17 09:49] LABS: TOT PROT 7.6 g/dl (6.4-8.2)
[2021-06-17] MEDS: COLLAGENASE CLOSTRIDIUM HIST. 30 GRAMS TUBE TP SCH (12:37)
[2021-06-17] MEDS ORDERED: FUROSEMIDE 40 MG/4 ML INJECTABLE VIAL IVPUSH ONE (13:15)
[2021-06-17] MEDS ORDERED: ALBUTEROL SO4 0.5 % INH SOLN 2.5 MG/0.5 ML VIAL.NEB. NEB PRN (15:34)
[2021-06-17] MEDS ORDERED: morphine SULFATE 4 MG/ML VIAL IVPUSH ONE (15:34)
[2021-06-17 17:52] LABS: HEMATOCRIT 23.8 % (35.4-49); HEMOGLOBIN 7.5 GM/dL (11.7-16.9); MCHC 31.4 g/dl (32.0-35.9); MEAN CELL VOLUME 92.4 fl (80-96); MEAN PLT VOLUME 7.7 fl (7.5-11.1); PLATELET COUNT 214 10^3/uL (134-434); RBC 2.57 M/mm3 (4.00-5.60); RDW 23.8 % (11.9-15.9); WHITE BLOOD COUNT 21.7 K/mm3 (4.0-10.0)
[2021-06-18] MEDS: HEPARIN NA (PORCINE) 5,000 UNITS/ML 1ML VIAL SQ SCH ×3 (06:06→21:17)
[2021-06-18] MEDS: INSULIN SLIDING SCALE (NOVOLOG) 1 VIAL SQ SCH ×3 (06:06→18:53)
[2021-06-18] MEDS: ALBUTEROL SO4 0.083% IH SOL 2.5 MG/3 ML VIAL.NEB. NEB SCH ×4 (07:41→20:30)
[2021-06-18 10:20] LABS: CHLORIDE 100 mmol/L (98-107); SODIUM 137 mmol/L (136-145)
[2021-06-18 10:23] LABS: ALBUMIN 2.1 g/dl (3.4-5.0); ANION GAP 11 MMOL/L (8-16); BLOOD UREA NITROGEN 58.2 mg/dL (7-18); CALCIUM 8.5 mg/dL (8.5-10.1); CO2 27 mmol/L (21-32); GLUCOSE,RANDOM 180 mg/dL (74-106)
[2021-06-18 10:27] LABS: CREATININE 1.7 mg/dL (0.55-1.3); SGOT/AST 51 U/L (15-37); SGPT/ALT 25 U/L (13-61); TOT PROT 7.4 g/dl (6.4-8.2)
[2021-06-18 10:29] LABS: BILIRUBIN,TOTAL 1.6 mg/dL (0.2-1)
[2021-06-18] MEDS ORDERED: PT OWN MED DRAWER 7, Y5N ONE ×2 (10:34→21:10)
[2021-06-18] MEDS: levETIRAcetam 500 MG/5 ML ORAL SOLUTION (UNIT-DOSE CUPS) PEG SCH ×2 (10:38→21:17)
[2021-06-18] MEDS: FOLIC ACID 1 MG TABLET (FP) PO SCH (10:39)
[2021-06-18] MEDS: MIDODRINE HCL 5 MG TABLET PEG SCH ×3 (10:39→18:51)
[2021-06-18] MEDS: PANTOPRAZOLE SODIUM 40 MG VIAL IVPUSH SCH (10:39)
[2021-06-18] MEDS: VITAMIN B COMP W-C 1 EA TABLET (NEPHRO-VITE) PO SCH (10:39)
[2021-06-18] MEDS: SEVELAMER CARBONATE 0.8 GM POWDER PACKET PEG SCH ×3 (10:39→18:51)
[2021-06-18] MEDS: AMINO ACIDS/PROTEIN HYDROLYS 30 ML LIQUID.PKT PEG SCH (10:39)
[2021-06-18] MEDS: BANATROL PLUS POWDER PACKET PEG SCH ×2 (10:39→21:17)
[2021-06-18 10:47] LABS: HEMATOCRIT 22.8 % (35.4-49); HEMOGLOBIN 7.2 GM/dL (11.7-16.9); MCH 29.1 pg (25.7-33.7); MCHC 31.6 g/dl (32.0-35.9); MEAN CELL VOLUME 91.9 fl (80-96); RBC 2.48 M/mm3 (4.00-5.60); RDW 23.9 % (11.9-15.9); WHITE BLOOD COUNT 20.5 K/mm3 (4.0-10.0)
[2021-06-18 11:00] LABS: ALK PHOS > 1000 U/L (45-117)
[2021-06-18] MEDS: COLLAGENASE CLOSTRIDIUM HIST. 30 GRAMS TUBE TP SCH (13:30)
[2021-06-18 13:56] LABS: ANISOCYTOSIS 2+; MACROCYTOSIS 0; PLATELET ESTIMATE DECREASED
[2021-06-18] MEDS: NYSTATIN 100,000 UNIT/GM TOPICAL CREAM 15 GM TUBE TP SCH ×2 (14:23→21:17)
[2021-06-18] MEDS: DIGOXIN 0.125 MG TABLET PO SCH (14:25)
[2021-06-18 20:42] VITALS: BMI 30.9
[2021-06-19 02:53] LABS: HEMATOCRIT 25.6 % (35.4-49); HEMOGLOBIN 8.5 GM/dL (11.7-16.9); MCHC 33.1 g/dl (32.0-35.9); MEAN CELL VOLUME 90.5 fl (80-96); MEAN PLT VOLUME 7.6 fl (7.5-11.1); PLATELET COUNT 210 10^3/uL (134-434); RBC 2.83 M/mm3 (4.00-5.60); WHITE BLOOD COUNT 19.9 K/mm3 (4.0-10.0)
[2021-06-19] MEDS: HEPARIN NA (PORCINE) 5,000 UNITS/ML 1ML VIAL SQ SCH ×3 (06:09→21:58)
[2021-06-19] MEDS: INSULIN SLIDING SCALE (NOVOLOG) 1 VIAL SQ SCH ×3 (06:09→17:49)
[2021-06-19] MEDS: ALBUTEROL SO4 0.083% IH SOL 2.5 MG/3 ML VIAL.NEB. NEB SCH ×4 (07:30→20:37)
[2021-06-19] MEDS ORDERED: SODIUM CHLORIDE 250 ML IV PRN (07:35)
[2021-06-19] MEDS: ALBUMIN HUMAN 25% 12.5 GM/50 ML VIAL IVPB SCH ×4 (08:00→09:32)
[2021-06-19] MEDS ORDERED: EPOETIN ALFA-EPBX 10,000 UNIT/ML VIAL SQ ONE (08:00)
[2021-06-19 08:27] LABS: HEMATOCRIT 25.5 % (35.4-49); HEMOGLOBIN 8.4 GM/dL (11.7-16.9); MCHC 32.8 g/dl (32.0-35.9); MEAN CELL VOLUME 91.6 fl (80-96); MEAN PLT VOLUME 7.9 fl (7.5-11.1); PLATELET COUNT 222 10^3/uL (134-434); RBC 2.78 M/mm3 (4.00-5.60); RDW 20.9 % (11.9-15.9); WHITE BLOOD COUNT 19.6 K/mm3 (4.0-10.0)
[2021-06-19 08:44] LABS: CHLORIDE 97 mmol/L (98-107); SODIUM 134 mmol/L (136-145)
[2021-06-19 08:48] LABS: ANION GAP 9 MMOL/L (8-16); CALCIUM 8.1 mg/dL (8.5-10.1); CO2 29 mmol/L (21-32); GLUCOSE,RANDOM 216 mg/dL (74-106)
[2021-06-19 08:49] LABS: MAGNESIUM 2.4 mg/dL (1.8-2.4)
[2021-06-19 08:51] LABS: CREATININE 1.9 mg/dL (0.55-1.3); SGOT/AST 44 U/L (15-37); SGPT/ALT 26 U/L (13-61)
[2021-06-19 08:53] LABS: BILIRUBIN,TOTAL 1.4 mg/dL (0.2-1); PHOSPHOROUS 2.9 mg/dL (2.5-4.9); TOT PROT 7.3 g/dl (6.4-8.2)
[2021-06-19 09:06] LABS: ALK PHOS > 1000 U/L (45-117)
[2021-06-19] MEDS: SEVELAMER CARBONATE 0.8 GM POWDER PACKET PEG SCH ×3 (11:12→17:49)
[2021-06-19] MEDS ORDERED: PT OWN MED DRAWER 7, Y5N ONE ×2 (11:15→21:57)
[2021-06-19] MEDS: FOLIC ACID 1 MG TABLET (FP) PO SCH (11:24)
[2021-06-19] MEDS: VITAMIN B COMP W-C 1 EA TABLET (NEPHRO-VITE) PO SCH (11:24)
[2021-06-19] MEDS: levETIRAcetam 500 MG/5 ML ORAL SOLUTION (UNIT-DOSE CUPS) PEG SCH ×2 (11:24→21:58)
[2021-06-19] MEDS: ZINC SULFATE 220 MG CAPSULE (FP) PO SCH (11:24)
[2021-06-19] MEDS: PANTOPRAZOLE SODIUM 40 MG VIAL IVPUSH SCH (11:25)
[2021-06-19] MEDS: MIDODRINE HCL 5 MG TABLET PEG SCH ×3 (11:26→17:50)
[2021-06-19] MEDS: AMINO ACIDS/PROTEIN HYDROLYS 30 ML LIQUID.PKT PEG SCH (11:27)
[2021-06-19] MEDS: BANATROL PLUS POWDER PACKET PEG SCH ×2 (11:27→21:59)
[2021-06-19] MEDS: NYSTATIN 100,000 UNIT/GM TOPICAL CREAM 15 GM TUBE TP SCH ×2 (11:36→21:58)
[2021-06-19] MEDS: COLLAGENASE CLOSTRIDIUM HIST. 30 GRAMS TUBE TP SCH (11:54)
[2021-06-19 21:20] LABS: BF WBC & OTHER NUCLEATED CELLS 1131 /mm3
[2021-06-19 23:27] LABS: BODY FLUID MONOCYTE 2 %; BODYL FLD EOSINOPHIL 1 %
[2021-06-19 23:28] LABS: BODY FLUID MACROPHAGES 24 %; BODY FLUID MESOTHELIAL 6 %
[2021-06-20] MEDS: INSULIN SLIDING SCALE (NOVOLOG) 1 VIAL SQ SCH ×3 (07:01→18:44)
[2021-06-20] MEDS: HEPARIN NA (PORCINE) 5,000 UNITS/ML 1ML VIAL SQ SCH ×3 (07:01→22:44)
[2021-06-20] MEDS: ALBUTEROL SO4 0.083% IH SOL 2.5 MG/3 ML VIAL.NEB. NEB SCH ×4 (08:27→19:45)
[2021-06-20] MEDS: SEVELAMER CARBONATE 0.8 GM POWDER PACKET PEG SCH ×3 (08:51→18:44)
[2021-06-20] MEDS: AMINO ACIDS/PROTEIN HYDROLYS 30 ML LIQUID.PKT PEG SCH (08:51)
[2021-06-20 09:25] LABS: HEMOGLOBIN 8.5 GM/dL (11.7-16.9); MCH 30.4 pg (25.7-33.7); MCHC 32.7 g/dl (32.0-35.9); MEAN CELL VOLUME 92.8 fl (80-96); MEAN PLT VOLUME 8.2 fl (7.5-11.1); PLATELET COUNT 223 10^3/uL (134-434); RDW 21.1 % (11.9-15.9); WHITE BLOOD COUNT 19.7 K/mm3 (4.0-10.0)
[2021-06-20 09:55] LABS: ALBUMIN 2.2 g/dl (3.4-5.0); BLOOD UREA NITROGEN 51.5 mg/dL (7-18)
[2021-06-20 09:57] LABS: CALCIUM 8.6 mg/dL (8.5-10.1)
[2021-06-20 09:58] LABS: BILIRUBIN,TOTAL 1.2 mg/dL (0.2-1)
[2021-06-20 09:59] LABS: CREATININE 1.5 mg/dL (0.55-1.3); TOT PROT 7.3 g/dl (6.4-8.2)
[2021-06-20] MEDS ORDERED: PT OWN MED DRAWER 7, Y5N ONE ×2 (10:47→21:54)
[2021-06-20] MEDS: PANTOPRAZOLE SODIUM 40 MG VIAL IVPUSH SCH (11:44)
[2021-06-20] MEDS: VITAMIN B COMP W-C 1 EA TABLET (NEPHRO-VITE) PO SCH (11:44)
[2021-06-20] MEDS: levETIRAcetam 500 MG/5 ML ORAL SOLUTION (UNIT-DOSE CUPS) PEG SCH ×2 (11:44→22:45)
[2021-06-20] MEDS: FOLIC ACID 1 MG TABLET (FP) PO SCH (11:44)
[2021-06-20] MEDS: BANATROL PLUS POWDER PACKET PEG SCH (11:44)
[2021-06-20] MEDS: ZINC SULFATE 220 MG CAPSULE (FP) PO SCH (11:44)
[2021-06-20] MEDS: MIDODRINE HCL 5 MG TABLET PEG SCH ×3 (11:45→18:44)
[2021-06-20] MEDS: COLLAGENASE CLOSTRIDIUM HIST. 30 GRAMS TUBE TP SCH (11:46)
[2021-06-20] MEDS: NYSTATIN 100,000 UNIT/GM TOPICAL CREAM 15 GM TUBE TP SCH ×2 (11:47→22:45)
[2021-06-20] MEDS ORDERED: POTASSIUM CHLORIDE ORAL LIQUID 20 MEQ/15 ML PO ONE (13:15)
[2021-06-20] MEDS: DIGOXIN 0.125 MG TABLET PO SCH (14:54)
[2021-06-20] MEDS ORDERED: morphine SULFATE 4 MG/ML VIAL IVPUSH ONE (21:57)
[2021-06-20] MEDS ORDERED: ACETAMINOPHEN 650 MG/20.3 ML ORAL SOLUTION (CUPS) PEG ONE (21:57)
[2021-06-21] MEDS: BANATROL PLUS POWDER PACKET PEG SCH ×3 (00:25→21:22)
[2021-06-21] MEDS: INSULIN SLIDING SCALE (NOVOLOG) 1 VIAL SQ SCH ×3 (06:24→17:08)
[2021-06-21] MEDS: HEPARIN NA (PORCINE) 5,000 UNITS/ML 1ML VIAL SQ SCH ×3 (06:24→21:22)
[2021-06-21] MEDS ORDERED: EPOETIN ALFA-EPBX 10,000 UNIT/ML VIAL SQ ONE (07:00)
[2021-06-21] MEDS ORDERED: SODIUM CHLORIDE 250 ML IV PRN (07:00)
[2021-06-21] MEDS: ALBUTEROL SO4 0.083% IH SOL 2.5 MG/3 ML VIAL.NEB. NEB SCH ×4 (07:50→19:26)
[2021-06-21] MEDS: SEVELAMER CARBONATE 0.8 GM POWDER PACKET PEG SCH ×3 (08:14→17:08)
[2021-06-21 09:39] LABS: HEMATOCRIT 25.5 % (35.4-49); HEMOGLOBIN 8.2 GM/dL (11.7-16.9); MCH 29.9 pg (25.7-33.7); MCHC 32.3 g/dl (32.0-35.9); MEAN CELL VOLUME 92.6 fl (80-96); MEAN PLT VOLUME 8.3 fl (7.5-11.1); PLATELET COUNT 252 10^3/uL (134-434); RBC 2.75 M/mm3 (4.00-5.60); RDW 21.6 % (11.9-15.9); WHITE BLOOD COUNT 18.4 K/mm3 (4.0-10.0)
[2021-06-21 09:55] LABS: CALCIUM 9.1 mg/dL (8.5-10.1)
[2021-06-21 09:56] LABS: BLOOD UREA NITROGEN 69.4 mg/dL (7-18); MAGNESIUM 2.6 mg/dL (1.8-2.4)
[2021-06-21 09:58] LABS: CREATININE 1.8 mg/dL (0.55-1.3)
[2021-06-21 09:59] LABS: PHOSPHOROUS 2.4 mg/dL (2.5-4.9)
[2021-06-21 10:00] LABS: BILIRUBIN,TOTAL 1.4 mg/dL (0.2-1); TOT PROT 7.2 g/dl (6.4-8.2)
[2021-06-21] MEDS: MIDODRINE HCL 5 MG TABLET PEG SCH ×3 (10:15→17:08)
[2021-06-21] MEDS: PANTOPRAZOLE SODIUM 40 MG VIAL IVPUSH SCH (12:15)
[2021-06-21] MEDS: levETIRAcetam 500 MG/5 ML ORAL SOLUTION (UNIT-DOSE CUPS) PEG SCH ×2 (12:15→21:22)
[2021-06-21] MEDS: ZINC SULFATE 220 MG CAPSULE (FP) PO SCH (12:15)
[2021-06-21] MEDS: FOLIC ACID 1 MG TABLET (FP) PO SCH (12:15)
[2021-06-21] MEDS: COLLAGENASE CLOSTRIDIUM HIST. 30 GRAMS TUBE TP SCH (12:16)
[2021-06-21] MEDS: VITAMIN B COMP W-C 1 EA TABLET (NEPHRO-VITE) PO SCH (12:16)
[2021-06-21] MEDS: NYSTATIN 100,000 UNIT/GM TOPICAL CREAM 15 GM TUBE TP SCH ×2 (12:16→21:22)
[2021-06-21] MEDS: AMINO ACIDS/PROTEIN HYDROLYS 30 ML LIQUID.PKT PEG SCH (12:17)
[2021-06-21 16:13] LABS: BODY FLUID ALBUMIN 1.4 g/dL (Not Estab.)
[2021-06-21] MEDS ORDERED: PT OWN MED DRAWER 7, Y5N ONE (21:09)
[2021-06-21] MEDS ORDERED: METOPROLOL TARTRATE 25 MG TABLET (FP) PO ONE (21:52)
[2021-06-21] MEDS ORDERED: morphine SULFATE 4 MG/ML VIAL IVPUSH ONE (21:52)
[2021-06-22] MEDS: INSULIN SLIDING SCALE (NOVOLOG) 1 VIAL SQ SCH ×3 (06:01→16:57)
[2021-06-22] MEDS: HEPARIN NA (PORCINE) 5,000 UNITS/ML 1ML VIAL SQ SCH ×3 (06:03→21:43)
[2021-06-22] MEDS: ALBUTEROL SO4 0.083% IH SOL 2.5 MG/3 ML VIAL.NEB. NEB SCH ×4 (08:05→20:15)
[2021-06-22 08:27] LABS: HEMATOCRIT 25.7 % (35.4-49); HEMOGLOBIN 8.2 GM/dL (11.7-16.9); MCH 29.7 pg (25.7-33.7); MCHC 31.8 g/dl (32.0-35.9); MEAN CELL VOLUME 93.6 fl (80-96); MEAN PLT VOLUME 7.9 fl (7.5-11.1); PLATELET COUNT 242 10^3/uL (134-434); RBC 2.74 M/mm3 (4.00-5.60); RDW 21.9 % (11.9-15.9); WHITE BLOOD COUNT 18.4 K/mm3 (4.0-10.0)
[2021-06-22 08:49] LABS: CALCIUM 8.9 mg/dL (8.5-10.1)
[2021-06-22 08:50] LABS: ALBUMIN 1.9 g/dl (3.4-5.0); BLOOD UREA NITROGEN 52.5 mg/dL (7-18); MAGNESIUM 2.6 mg/dL (1.8-2.4)
[2021-06-22 08:53] LABS: CREATININE 1.5 mg/dL (0.55-1.3); PHOSPHOROUS 1.6 mg/dL (2.5-4.9)
[2021-06-22 08:54] LABS: BILIRUBIN,TOTAL 1.2 mg/dL (0.2-1)
[2021-06-22 08:55] LABS: TOT PROT 7.1 g/dl (6.4-8.2)
[2021-06-22] MEDS ORDERED: PT OWN MED DRAWER 7, Y5N ONE ×3 (09:08→21:26)
[2021-06-22] MEDS: SEVELAMER CARBONATE 0.8 GM POWDER PACKET PEG SCH (09:22)
[2021-06-22] MEDS: AMINO ACIDS/PROTEIN HYDROLYS 30 ML LIQUID.PKT PEG SCH (09:22)
[2021-06-22] MEDS: levETIRAcetam 500 MG/5 ML ORAL SOLUTION (UNIT-DOSE CUPS) PEG SCH ×2 (09:22→21:43)
[2021-06-22] MEDS: VITAMIN B COMP W-C 1 EA TABLET (NEPHRO-VITE) PO SCH (09:22)
[2021-06-22] MEDS: ZINC SULFATE 220 MG CAPSULE (FP) PO SCH (09:23)
[2021-06-22] MEDS: MIDODRINE HCL 5 MG TABLET PEG SCH ×3 (09:23→18:45)
[2021-06-22] MEDS: FOLIC ACID 1 MG TABLET (FP) PO SCH (09:23)
[2021-06-22] MEDS: BANATROL PLUS POWDER PACKET PEG SCH ×2 (09:26→21:44)
[2021-06-22] MEDS: PANTOPRAZOLE SODIUM 40 MG VIAL IVPUSH SCH (09:54)
[2021-06-22] MEDS: NYSTATIN 100,000 UNIT/GM TOPICAL CREAM 15 GM TUBE TP SCH ×2 (11:48→21:43)
[2021-06-22] MEDS: DIGOXIN 0.125 MG TABLET PO SCH (14:07)
[2021-06-22] MEDS: NAPH,MB-DB/K PH,MBDB POWDER PACKET PEG SCH ×2 (14:07→21:43)
[2021-06-22] MEDS: COLLAGENASE CLOSTRIDIUM HIST. 30 GRAMS TUBE TP SCH (19:17)
[2021-06-23] MEDS ORDERED: morphine SULFATE 4 MG/ML VIAL IVPUSH ONE (02:16)
[2021-06-23] MEDS ORDERED: METOPROLOL TARTRATE 25 MG TABLET (FP) PO ONE (02:17)
[2021-06-23] MEDS: HEPARIN NA (PORCINE) 5,000 UNITS/ML 1ML VIAL SQ SCH ×3 (06:12→22:35)
[2021-06-23] MEDS: INSULIN SLIDING SCALE (NOVOLOG) 1 VIAL SQ SCH ×3 (06:13→18:37)
[2021-06-23] MEDS: ALBUTEROL SO4 0.083% IH SOL 2.5 MG/3 ML VIAL.NEB. NEB SCH ×4 (07:50→20:10)
[2021-06-23 08:48] LABS: MAGNESIUM 2.8 mg/dL (1.8-2.4)
[2021-06-23 08:52] LABS: PHOSPHOROUS 2.6 mg/dL (2.5-4.9)
[2021-06-23] MEDS: levETIRAcetam 500 MG/5 ML ORAL SOLUTION (UNIT-DOSE CUPS) PEG SCH ×2 (10:50→22:36)
[2021-06-23] MEDS: PANTOPRAZOLE SODIUM 40 MG VIAL IVPUSH SCH (10:50)
[2021-06-23] MEDS: AMINO ACIDS/PROTEIN HYDROLYS 30 ML LIQUID.PKT PEG SCH (10:50)
[2021-06-23] MEDS: MIDODRINE HCL 5 MG TABLET PEG SCH ×3 (10:50→18:37)
[2021-06-23] MEDS: NYSTATIN 100,000 UNIT/GM TOPICAL CREAM 15 GM TUBE TP SCH ×2 (10:50→22:36)
[2021-06-23] MEDS: BANATROL PLUS POWDER PACKET PEG SCH ×2 (10:50→22:35)
[2021-06-23] MEDS: VITAMIN B COMP W-C 1 EA TABLET (NEPHRO-VITE) PO SCH (10:50)
[2021-06-23] MEDS: ZINC SULFATE 220 MG CAPSULE (FP) PO SCH (10:50)
[2021-06-23] MEDS: FOLIC ACID 1 MG TABLET (FP) PO SCH (10:50)
[2021-06-23] MEDS: COLLAGENASE CLOSTRIDIUM HIST. 30 GRAMS TUBE TP SCH (10:51)
[2021-06-23] MEDS ORDERED: SODIUM CHLORIDE 250 ML IV PRN (16:52)
[2021-06-23] MEDS ORDERED: EPOETIN ALFA-EPBX 10,000 UNIT/ML VIAL IVPUSH ONE (17:00)
[2021-06-23] MEDS: ALBUMIN HUMAN 25% 12.5 GM/50 ML VIAL IVPB SCH ×4 (19:00→20:31)
[2021-06-23 19:32] LABS: HEMATOCRIT 24.8 % (35.4-49); HEMOGLOBIN 7.9 GM/dL (11.7-16.9); MCH 29.4 pg (25.7-33.7); MCHC 31.8 g/dl (32.0-35.9); MEAN CELL VOLUME 92.4 fl (80-96); PLATELET COUNT 259 10^3/uL (134-434); RBC 2.68 M/mm3 (4.00-5.60); RDW 21.7 % (11.9-15.9)
[2021-06-23 20:00] LABS: CALCIUM 9.2 mg/dL (8.5-10.1)
[2021-06-23 20:03] LABS: CREATININE 1.9 mg/dL (0.55-1.3)
[2021-06-23 20:05] LABS: BLOOD UREA NITROGEN 89.6 mg/dL (7-18)
[2021-06-24] MEDS: HEPARIN NA (PORCINE) 5,000 UNITS/ML 1ML VIAL SQ SCH ×3 (06:22→22:25)
[2021-06-24] MEDS: INSULIN SLIDING SCALE (NOVOLOG) 1 VIAL SQ SCH ×3 (06:22→17:55)
[2021-06-24] MEDS: ALBUTEROL SO4 0.083% IH SOL 2.5 MG/3 ML VIAL.NEB. NEB SCH ×4 (08:58→19:50)
[2021-06-24 09:38] LABS: HEMATOCRIT 25.5 % (35.4-49); HEMOGLOBIN 8.1 GM/dL (11.7-16.9); MCH 29.5 pg (25.7-33.7); MCHC 31.6 g/dl (32.0-35.9); MEAN CELL VOLUME 93.4 fl (80-96); MEAN PLT VOLUME 8.5 fl (7.5-11.1); PLATELET COUNT 250 10^3/uL (134-434); RBC 2.73 M/mm3 (4.00-5.60); WHITE BLOOD COUNT 17.8 K/mm3 (4.0-10.0)
[2021-06-24] MEDS ORDERED: PT OWN MED DRAWER 7, Y5N ONE ×2 (10:11→22:12)
[2021-06-24] MEDS: FOLIC ACID 1 MG TABLET (FP) PO SCH (10:37)
[2021-06-24] MEDS: PANTOPRAZOLE SODIUM 40 MG VIAL IVPUSH SCH (10:37)
[2021-06-24] MEDS: VITAMIN B COMP W-C 1 EA TABLET (NEPHRO-VITE) PO SCH (10:37)
[2021-06-24] MEDS: ZINC SULFATE 220 MG CAPSULE (FP) PO SCH (10:37)
[2021-06-24] MEDS: levETIRAcetam 500 MG/5 ML ORAL SOLUTION (UNIT-DOSE CUPS) PEG SCH ×2 (10:38→22:25)
[2021-06-24] MEDS: TORSEMIDE 20 MG TABLET (FP) PO SCH ×2 (10:38→15:57)
[2021-06-24] MEDS: AMINO ACIDS/PROTEIN HYDROLYS 30 ML LIQUID.PKT PEG SCH (10:38)
[2021-06-24] MEDS: NYSTATIN 100,000 UNIT/GM TOPICAL CREAM 15 GM TUBE TP SCH ×2 (10:38→22:25)
[2021-06-24] MEDS: COLLAGENASE CLOSTRIDIUM HIST. 30 GRAMS TUBE TP SCH (10:38)
[2021-06-24] MEDS: BANATROL PLUS POWDER PACKET PEG SCH ×2 (10:38→22:25)
[2021-06-24] MEDS: MIDODRINE HCL 5 MG TABLET PEG SCH ×3 (10:38→18:36)
[2021-06-24 11:16] LABS: BLOOD UREA NITROGEN 84.2 mg/dL (7-18); CALCIUM 8.6 mg/dL (8.5-10.1)
[2021-06-24 11:19] LABS: CREATININE 1.9 mg/dL (0.55-1.3); PHOSPHOROUS 2.1 mg/dL (2.5-4.9)
[2021-06-24] MEDS ORDERED: SODIUM CHLORIDE 0.9% 500 ML INFUS.BAG IV ONE (11:24)
[2021-06-24 11:25] LABS: MAGNESIUM 2.6 mg/dL (1.8-2.4)
[2021-06-24] MEDS ORDERED: ALBUMIN HUMAN 25% 12.5 GM/50 ML VIAL IVPB SCH (12:15)
[2021-06-24] MEDS ORDERED: ALBUMIN HUMAN 25% 12.5 GM/50 ML VIAL IVPB ONE ×2 (16:15→23:03)
[2021-06-24] MEDS: DIGOXIN 0.125 MG TABLET PO SCH (16:33)
[2021-06-24] MEDS ORDERED: morphine SULFATE 4 MG/ML VIAL IVPUSH ONE (22:49)
[2021-06-24] MEDS ORDERED: METOPROLOL TARTRATE 25 MG TABLET (FP) PO ONE (22:49)
[2021-06-25] MEDS ORDERED: DIGOXIN 0.5 MG/2 ML AMPUL IVPUSH ONE ×3 (00:12→02:03)
[2021-06-25] MEDS ORDERED: NOREPINEPHRINE NS PREMIX 16,000 MCG/500 ML BAG IVPB ONE (05:24)
[2021-06-25] MEDS: NOREPINEPHRINE NS PREMIX 16,000 MCG/500 ML BAG IVPB SCH (05:34)
[2021-06-25] MEDS: HEPARIN NA (PORCINE) 5,000 UNITS/ML 1ML VIAL SQ SCH (05:36)
[2021-06-25] MEDS ORDERED: ACETAMINOPHEN 1000 MG/100 ML VIAL IVPB ONE (05:59)
[2021-06-25] MEDS: INSULIN SLIDING SCALE (NOVOLOG) 1 VIAL SQ SCH (06:31)
[2021-06-25 06:42] LABS: HEMATOCRIT 24.4 % (35.4-49); HEMOGLOBIN 7.7 GM/dL (11.7-16.9); MCH 29.3 pg (25.7-33.7); MCHC 31.5 g/dl (32.0-35.9); MEAN CELL VOLUME 93.3 fl (80-96); PLATELET COUNT 245 10^3/uL (134-434); RBC 2.61 M/mm3 (4.00-5.60); RDW 21.6 % (11.9-15.9)
[2021-06-25] MEDS: VASOPRESSIN 40 UNITS/100 ML BAG IV SCH (07:02)
[2021-06-25 07:10] LABS: BLOOD UREA NITROGEN 98.8 mg/dL (7-18); MAGNESIUM 2.6 mg/dL (1.8-2.4)
[2021-06-25 07:13] LABS: CREATININE 2.3 mg/dL (0.55-1.3); PHOSPHOROUS 2.4 mg/dL (2.5-4.9)
[2021-06-25 07:27] LABS: WHITE BLOOD COUNT 32.2 K/mm3 (4.0-10.0)
[2021-06-25] MEDS ORDERED: VANCOMYCIN 1 GM in D5W (PRE-DOCKED) 1,000 MG/250 ML IVPB ONE (08:03)
[2021-06-25] MEDS: AMINO ACIDS/PROTEIN HYDROLYS 30 ML LIQUID.PKT PEG SCH (08:59)
[2021-06-25] MEDS ORDERED: DEXTROSE 5%-WATER - 50 ML IVPB ONE ×2 (09:07→13:18)
[2021-06-25] MEDS ORDERED: PIPERACILLIN/TAZOBACTAM 2.25 GM VIAL IVPB ONE ×2 (09:07→13:18)
[2021-06-25] MEDS: BANATROL PLUS POWDER PACKET PEG SCH ×3 (09:28→21:03)
[2021-06-25] MEDS: MIDODRINE HCL 5 MG TABLET PEG SCH ×3 (09:29→13:22)
[2021-06-25] MEDS: PANTOPRAZOLE SODIUM 40 MG VIAL IVPUSH SCH ×2 (09:29→10:04)
[2021-06-25] MEDS: VITAMIN B COMP W-C 1 EA TABLET (NEPHRO-VITE) PO SCH (09:30)
[2021-06-25] MEDS: ZINC SULFATE 220 MG CAPSULE (FP) PO SCH ×2 (09:30→10:03)
[2021-06-25] MEDS: FOLIC ACID 1 MG TABLET (FP) PO SCH (09:30)
[2021-06-25] MEDS: NYSTATIN 100,000 UNIT/GM TOPICAL CREAM 15 GM TUBE TP SCH (09:33)
[2021-06-25] MEDS: COLLAGENASE CLOSTRIDIUM HIST. 30 GRAMS TUBE TP SCH (09:33)
[2021-06-25] MEDS ORDERED: PT OWN MED DRAWER 7, Y5N ONE ×2 (09:39→20:22)
[2021-06-25] MEDS ORDERED: DEXTROSE 50%-WATER - 25 GM/50 ML VIAL IVPUSH PRN (09:43)
[2021-06-25] MEDS ORDERED: ALBUTEROL SO4 0.5 % INH SOLN 2.5 MG/0.5 ML VIAL.NEB. NEB PRN (09:43)
[2021-06-25] MEDS: ALBUTEROL SO4 0.083% IH SOL 2.5 MG/3 ML VIAL.NEB. NEB SCH ×4 (09:54→20:40)
[2021-06-25] MEDS ORDERED: PIPERACILLIN/TAZOB 2.25 GM 2.25 GM in DEXTROSE 5%-WATER - 50 ML IVPB SCH (10:00)
[2021-06-25] MEDS ORDERED: COLLAGENASE CLOSTRIDIUM HIST. 30 GRAMS TUBE TP SCH (10:00)
[2021-06-25] MEDS ORDERED: MUPIROCIN 2% TOPICAL OINTMENT FOR DECOLONIZATION NS SCH (10:00)
[2021-06-25] MEDS ORDERED: VITAMIN B COMP W-C 1 EA TABLET (NEPHRO-VITE) PO SCH (10:00)
[2021-06-25] MEDS ORDERED: NYSTATIN 100,000 UNIT/GM TOPICAL CREAM 15 GM TUBE TP SCH (10:00)
[2021-06-25] MEDS ORDERED: FOLIC ACID 1 MG TABLET (FP) PO SCH (10:00)
[2021-06-25] MEDS ORDERED: INSULIN SLIDING SCALE (NOVOLOG) 1 VIAL SQ SCH (11:00)
[2021-06-25 11:38] LABS: LACTIC ACID 3.1 mmol/L (0.4-2.0)
[2021-06-25] MEDS: levETIRAcetam 500 MG/5 ML ORAL SOLUTION (UNIT-DOSE CUPS) PEG SCH ×2 (11:56→21:03)
[2021-06-25] MEDS ORDERED: SEVELAMER CARBONATE 0.8 GM POWDER PACKET PEG SCH (12:00)
[2021-06-25] MEDS ORDERED: HEPARIN NA (PORCINE) 5,000 UNITS/ML 1ML VIAL SQ SCH (14:00)
[2021-06-25] MEDS: MEROPENEM 500 MG in DEXTROSE 5%-WATER 100 ML IVPB SCH (15:10)
[2021-06-25] MEDS ORDERED: MEROPENEM 500 MG VIAL (RESTRICTED TO ID) IVPB ONE (15:35)
[2021-06-25] MEDS ORDERED: DEXTROSE 5%-WATER 100 ML IVPB ONE (15:36)
[2021-06-25] MEDS: MORPHINE SULFATE/0.9% NACL/PF 100 MG/100 ML BAG IVPB SCH (16:10)
[2021-06-25] MEDS ORDERED: CHLORHEXIDINE GLUCONATE 4% CLEANSER FOR DECOLONIZATION TP SCH (22:00)
[2021-06-26] MEDS: NOREPINEPHRINE NS PREMIX 16,000 MCG/500 ML BAG IVPB SCH ×2 (03:13→14:14)
[2021-06-26] MEDS ORDERED: AMINO ACIDS/PROTEIN HYDROLYS 30 ML LIQUID.PKT PEG SCH (08:00)
[2021-06-26] MEDS ORDERED: PT OWN MED DRAWER 7, Y5N ONE ×2 (08:01→20:50)
[2021-06-26] MEDS: ALBUTEROL SO4 0.083% IH SOL 2.5 MG/3 ML VIAL.NEB. NEB SCH ×4 (08:07→20:22)
[2021-06-26] MEDS: BANATROL PLUS POWDER PACKET PEG SCH ×2 (09:09→21:22)
[2021-06-26] MEDS: VASOPRESSIN 40 UNITS/100 ML BAG IV SCH ×2 (09:09→22:34)
[2021-06-26] MEDS: MORPHINE SULFATE/0.9% NACL/PF 100 MG/100 ML BAG IVPB SCH ×2 (09:10→16:34)
[2021-06-26] MEDS: ZINC SULFATE 220 MG CAPSULE (FP) PO SCH (09:10)
[2021-06-26] MEDS: levETIRAcetam 500 MG/5 ML ORAL SOLUTION (UNIT-DOSE CUPS) PEG SCH ×2 (09:10→21:22)
[2021-06-26] MEDS: PANTOPRAZOLE SODIUM 40 MG VIAL IVPUSH SCH (09:10)
[2021-06-26] MEDS ORDERED: MEROPENEM 500 MG VIAL (RESTRICTED TO ID) IVPB ONE (14:09)
[2021-06-26] MEDS ORDERED: DEXTROSE 5%-WATER 100 ML IVPB ONE (14:09)
[2021-06-26] MEDS: MEROPENEM 500 MG in DEXTROSE 5%-WATER 100 ML IVPB SCH (14:14)
[2021-06-26] MEDS ORDERED: DIGOXIN 0.125 MG TABLET PO SCH (14:16)
[2021-06-27] MEDS: VASOPRESSIN 40 UNITS/100 ML BAG IV SCH (06:14)
[2021-06-27] MEDS: NOREPINEPHRINE NS PREMIX 16,000 MCG/500 ML BAG IVPB SCH (06:15)
[2021-06-27] MEDS ORDERED: PT OWN MED DRAWER 7, Y5N ONE ×3 (06:34→20:47)
[2021-06-27 07:29] LABS: HEMATOCRIT 26.5 % (35.4-49); MCH 28.9 pg (25.7-33.7); MCHC 30.3 g/dl (32.0-35.9); MEAN CELL VOLUME 95.2 fl (80-96); PLATELET COUNT 257 10^3/uL (134-434); RBC 2.78 M/mm3 (4.00-5.60)
[2021-06-27 07:50] LABS: WHITE BLOOD COUNT 37.7 K/mm3 (4.0-10.0)
[2021-06-27 07:51] LABS: CHLORIDE 100 mmol/L (98-107); SODIUM 136 mmol/L (136-145)
[2021-06-27] MEDS: ALBUTEROL SO4 0.083% IH SOL 2.5 MG/3 ML VIAL.NEB. NEB SCH ×4 (08:09→20:45)
[2021-06-27 08:21] LABS: CALCIUM 9.6 mg/dL (8.5-10.1)
[2021-06-27 08:22] LABS: ALBUMIN 1.7 g/dl (3.4-5.0); ANION GAP 13 MMOL/L (8-16); CO2 22 mmol/L (21-32); GLUCOSE,RANDOM 115 mg/dL (74-106); MAGNESIUM 2.8 mg/dL (1.8-2.4)
[2021-06-27 08:25] LABS: CREATININE 2.5 mg/dL (0.55-1.3); PHOSPHOROUS 5.7 mg/dL (2.5-4.9); SGOT/AST 95 U/L (15-37); SGPT/ALT 41 U/L (13-61)
[2021-06-27 08:26] LABS: BILIRUBIN,TOTAL 4.2 mg/dL (0.2-1)
[2021-06-27 08:27] LABS: TOT PROT 7.2 g/dl (6.4-8.2)
[2021-06-27 08:42] LABS: ALK PHOS 1442 U/L (45-117); BLOOD UREA NITROGEN 120.7 mg/dL (7-18)
[2021-06-27] MEDS ORDERED: SODIUM CHLORIDE 250 ML IV PRN (08:42)
[2021-06-27] MEDS ORDERED: ALBUMIN HUMAN 25% 12.5 GM/50 ML VIAL IVPB SCH (08:45)
[2021-06-27] MEDS: PANTOPRAZOLE SODIUM 40 MG VIAL IVPUSH SCH (09:39)
[2021-06-27] MEDS: BANATROL PLUS POWDER PACKET PEG SCH ×2 (09:39→21:05)
[2021-06-27] MEDS: MORPHINE SULFATE/0.9% NACL/PF 100 MG/100 ML BAG IVPB SCH ×2 (09:40→21:05)
[2021-06-27] MEDS: ZINC SULFATE 220 MG CAPSULE (FP) PO SCH (09:40)
[2021-06-27] MEDS: levETIRAcetam 500 MG/5 ML ORAL SOLUTION (UNIT-DOSE CUPS) PEG SCH ×2 (09:53→21:05)
[2021-06-27 10:37] LABS: ANISOCYTOSIS 2+; MACROCYTOSIS 1+; PLATELET ESTIMATE NORMAL
[2021-06-27] MEDS ORDERED: DEXTROSE 5%-WATER 100 ML IVPB ONE (12:45)
[2021-06-27] MEDS ORDERED: MEROPENEM 500 MG VIAL (RESTRICTED TO ID) IVPB ONE (12:45)
[2021-06-27] MEDS: MEROPENEM 500 MG in DEXTROSE 5%-WATER 100 ML IVPB SCH (13:42)
[2021-06-28] MEDS: NOREPINEPHRINE NS PREMIX 16,000 MCG/500 ML BAG IVPB SCH ×2 (02:33→06:23)
[2021-06-28] MEDS: MORPHINE SULFATE/0.9% NACL/PF 100 MG/100 ML BAG IVPB SCH (02:33)
[2021-06-28] MEDS: ALBUTEROL SO4 0.083% IH SOL 2.5 MG/3 ML VIAL.NEB. NEB SCH ×4 (07:41→20:30)
[2021-06-28] MEDS ORDERED: PT OWN MED DRAWER 7, Y5N ONE (08:37)
[2021-06-28] MEDS: BANATROL PLUS POWDER PACKET PEG SCH (09:14)
[2021-06-28] MEDS: PANTOPRAZOLE SODIUM 40 MG VIAL IVPUSH SCH (09:14)
[2021-06-28] MEDS: levETIRAcetam 500 MG/5 ML ORAL SOLUTION (UNIT-DOSE CUPS) PEG SCH (09:14)
[2021-06-28] MEDS: ZINC SULFATE 220 MG CAPSULE (FP) PO SCH (09:14)
[2021-06-28 11:07] VITALS: TEMP 93
[2021-06-28] MEDS: MEROPENEM 500 MG in DEXTROSE 5%-WATER 100 ML IVPB SCH (15:05)
[2021-06-28] MEDS ORDERED: MEROPENEM 500 MG VIAL (RESTRICTED TO ID) IVPB ONE (16:02)
[2021-06-28] MEDS ORDERED: DEXTROSE 5%-WATER 100 ML IVPB ONE (16:02)
[2021-06-29] MEDS: ALBUTEROL SO4 0.083% IH SOL 2.5 MG/3 ML VIAL.NEB. NEB SCH ×2 (07:42→11:31)
[2021-06-29] MEDS ORDERED: PT OWN MED DRAWER 7, Y5N ONE (09:25)
[2021-06-29] MEDS: levETIRAcetam 500 MG/5 ML ORAL SOLUTION (UNIT-DOSE CUPS) PEG SCH (09:30)
[2021-06-29] MEDS: BANATROL PLUS POWDER PACKET PEG SCH (09:30)
[2021-06-29] MEDS: PANTOPRAZOLE SODIUM 40 MG VIAL IVPUSH SCH (09:50)
[2021-06-29] MEDS: ZINC SULFATE 220 MG CAPSULE (FP) PO SCH (09:50)
[2021-06-29 10:23] VITALS: BP 72/23; PULSE 59
== END 2021-06-29 13:04 | disposition expired | DRG 870 ==
LOC: JER 02:14 → JERBED 02:53 → J5S 14:13 → JICU 06-03 01:21 → J5S 06-12 20:57 → JICU 06-25 05:05
PROVIDERS: ADMIT Internal Medicine; ATTEND Internal Medicine Pulmonary Disease
PROC: 5A1955Z Respiratory Ventilation, Greater than 96 Consecutive Hours (ICD-10-PCS; principal; 2021-06-01)
PROC: B543ZZA Ultrasonography of Right Jugular Veins, Guidance (ICD-10-PCS; 2021-06-05)
PROC: 05HM33Z Insertion of Infusion Device into Right Internal Jugular Vein, Percutaneous Approach (ICD-10-PCS; 2021-06-06)
PROC: 05HY33Z Insertion of Infusion Device into Upper Vein, Percutaneous Approach (ICD-10-PCS; 2021-06-14)
PROC: 30233N1 Transfusion of Nonautologous Red Blood Cells into Peripheral Vein, Percutaneous Approach (ICD-10-PCS; 2021-06-18)
PROC: 0W9930Z Drainage of Right Pleural Cavity with Drainage Device, Percutaneous Approach (ICD-10-PCS; 2021-06-19)
PROC: 5A1D70Z Performance of Urinary Filtration, Intermittent, Less than 6 Hours Per Day (ICD-10-PCS; 2021-06-23)
PROC: 05HN33Z Insertion of Infusion Device into Left Internal Jugular Vein, Percutaneous Approach (ICD-10-PCS; 2021-06-25)
PROC: B544ZZA Ultrasonography of Left Jugular Veins, Guidance (ICD-10-PCS; 2021-06-25)
DX: A41.9 Sepsis, unspecified organism (principal); L89.153 Pressure ulcer of sacral region, stage 3; J96.21 Acute and chronic respiratory failure with hypoxia; N18.6 End stage renal disease; I50.33 Acute on chronic diastolic (congestive) heart failure; R65.21 Severe sepsis with septic shock; J95.851 Ventilator associated pneumonia; G81.91 Hemiplegia, unspecified affecting right dominant side; E87.2 Acidosis; E87.3 Alkalosis; J90 Pleural effusion, not elsewhere classified; N17.9 Acute kidney failure, unspecified; I12.0 Hypertensive chronic kidney disease with stage 5 chronic kidney disease or end stage renal disease; N39.0 Urinary tract infection, site not specified; Z99.11 Dependence on respirator [ventilator] status; I48.19 Other persistent atrial fibrillation; E87.4 Mixed disorder of acid-base balance; J98.11 Atelectasis; K92.2 Gastrointestinal hemorrhage, unspecified; G93.1 Anoxic brain damage, not elsewhere classified; Z93.1 Gastrostomy status; Z93.4 Other artificial openings of gastrointestinal tract status; Z93.0 Tracheostomy status; R60.1 Generalized edema; E87.70 Fluid overload, unspecified; D72.829 Elevated white blood cell count, unspecified; K21.9 Gastro-esophageal reflux disease without esophagitis; I95.9 Hypotension, unspecified; E66.9 Obesity, unspecified; Z68.29 Body mass index [BMI] 29.0-29.9, adult; N40.0 Benign prostatic hyperplasia without lower urinary tract symptoms; D64.9 Anemia, unspecified
CPT/HCPCS: 32557; 36415; 36430; 36600; 71045-TC-FY; 71046-TC-FY; 71250-TC; 74176-TC; 76000-TC-FY; 76705-TC; 76942-TC; 80048; 80053; 80061; 80162; 81003; 82042; 82150; 82248; 82272; 82550; 82607; 82728; 82746; 82784; 82803; 82945; 82962; 82977; 83036; 83516; 83540; 83550; 83605; 83615; 83735; 83880; 83986; 84100; 84155; 84157; 84165; 84443; 84478; 84484; 85025; 85027; 85045; 85379; 85610; 85730; 86140; 86334; 86706; 86803; 86850; 86900; 86901; 86922; 87040; 87070; 87075; 87077; 87086; 87102; 87116; 87186; 87205; 87206; 87210; 87324; 87340; 87449; 87517; 87804; 93005; 93010; 93306-TC; 93970-TC; 94002; 94640; 94760; 99285-25; C1729; C1769; C9803; G0480; J0131; J1644; J3490; P9047; P9058; Q5106; U0003; U0005